=== PATIENT | female | born 1940 | race Caucasian/White ===

== ENCOUNTER 2020-07-06 22:22 | Inpatient (IN) | payer OTHER ==
--- NOTE | 2020-07-06 22:40 | PDOC ---
Attending Attestation - Resident Resident Name: Fernando Lombardi - ED Attending Attestation I have performed the following: I have examined & evaluated the patient, The case was reviewed & discussed with the resident, I agree w/resident's findings & plan - HPI HPI: 07/07/20 02:08 see resident hpi - Physicial Exam PE: 07/07/20 02:09 see resident exam - Medical Decision Making 07/07/20 02:09 79-year-old female with an episode of numbness and pain to the left lower extremity with acute discoloration described as turning white now partially resolved CTA of the lower extremity shows acute occlusion of the left popliteal artery with collateral flow in place There is a palpable thready dorsalis pedis pulse on exam Plan for heparinization and stat vascular consult with admission Discharge - Discharge Information Problems reviewed: Yes Clinical Impression/Diagnosis: Popliteal artery occlusion, left - Follow up/Referral Referrals: Andrea Camara MD [Primary Care Provider] - - Patient Discharge Instructions - Post Discharge Activity
[2020-07-06 23:19] LABS: BASO % 1.1 % (0-2.0); EOS % 1.2 % (0-4.5); HEMATOCRIT 42.3 % (32.4-45.2); HEMOGLOBIN 13.8 GM/dL (10.7-15.3); LYMPH % 19.1 % (8-40); MCHC 32.6 g/dl (32.0-36.0); MEAN CELL VOLUME 82.8 fl (80-96); MEAN PLT VOLUME 8.6 fl (7.5-11.1); MONO % 6.9 % (3.8-10.2); NEUT % 71.7 % (42.8-82.8); PLATELET COUNT 208 K/MM3 (134-434); RDW 16.3 % (11.6-15.6); WHITE BLOOD COUNT 12.4 K/mm3 (4.0-10.0)
[2020-07-06 23:26] LABS: INR 0.97 (0.83-1.09); PROTHROMBIN TIME (PATIENT) 11.5 SEC (9.7-13.0)
[2020-07-06 23:29] LABS: ACTIVATED PTT 30.6 SECONDS (25.2-36.5)
[2020-07-06 23:36] LABS: BILIRUBIN,TOTAL 0.6 mg/dL (0.2-1); BLOOD UREA NITROGEN 20.6 mg/dL (7-18); CALCIUM 9.6 mg/dL (8.5-10.1); POTASSIUM 4.5 mmol/L (3.5-5.1); TOT PROT 7.8 g/dl (6.4-8.2)
--- NOTE | 2020-07-06 23:48 | PDOC ---
History of Present Illness - General Chief Complaint: Blood Pressure Problem Stated Complaint: PAIN Time Seen by Provider: 07/06/20 22:40 - History of Present Illness Initial Comments: 07/07/20 02:11 79 F with HTN, HLD, Hypothyroidism presented to the ED with left leg paraestheasia. About 6pm, while she was gardening, she felt numbness on her right leg, below the knee, then quickly change color to white. Shortly after it happeneed, her grandson massaged her leg, and it came to normal color. She still experienced numbness since then. Denies hx of prior legs occlusion, F/C/N/V/D, chest pain, abdominal pain. PMH: as above PSH: none Med: home meds, not on anticoagulation meds. SS: denies smoking, alcohol, drug. PCP: umer CAMPBELL GENERAL/CONSTITUTIONAL: No fever or chills. No weakness. HEAD, EYES, EARS, NOSE AND THROAT: No change in vision. No ear pain or discharge. No sore throat. CARDIOVASCULAR: No chest pain or shortness of breath RESPIRATORY: No cough, wheezing, or hemoptysis. GASTROINTESTINAL: No nausea, vomiting, diarrhea or constipation. GENITOURINARY: No dysuria, frequency, or change in urination. MUSCULOSKELETAL: No joint or muscle swelling or pain. No neck or back pain. SKIN: No rash NEUROLOGIC: No headache, vertigo, loss of consciousness, +change in left leg sensation. ENDOCRINE: No increased thirst. No abnormal weight change HEMATOLOGIC/LYMPHATIC: No anemia, easy bleeding, or history of blood clots. ALLERGIC/IMMUNOLOGIC: No hives or skin allergy. PE HTN 166/90 GENERAL: Awake, alert, and fully oriented, in no acute distress HEAD: No signs of trauma, normocephalic, atraumatic EYES: PERRLA, EOMI, sclera anicteric, conjunctiva clear ENT: Auricles normal inspection, hearing grossly normal, nares patent, oropharynx clear without exudates. Moist mucosa NECK: Normal ROM, supple, no lymphadenopathy, JVD, or masses LUNGS: No distress, speaks full sentences, clear to auscultation bilaterally HEART: Regular rate and rhythm, normal S1 and S2, no murmurs, rubs or gallops, peripheral pulses normal and equal bilaterally. ABDOMEN: Soft, nontender, normoactive bowel sounds. No guarding, no rebound. No masses EXTREMITIES : Normal inspection, Normal range of motion, no edema. No clubbing or cyanosis. Can't appreciate popeliteal artery, dorsal artery, posterior tibial artery. Leg is warm, normal color. NEUROLOGICAL: Cranial nerves II through XII grossly intact. Normal speech, normal gait, no focal sensorimotor deficits SKIN: Warm, Dry, normal turgor, no rashes or lesions noted 07/07/20 02:33 Past History - Medical History Allergies/Adverse Reactions: Allergies Allergy/AdvReac Type Severity Reaction Status Date / Time No Known Allergies Allergy Verified 08/05/15 11:12 Home Medications: Ambulatory Orders Aspirin [ASA -] 81 mg PO DAILY 08/05/15 Atorvastatin Ca [Lipitor] 40 mg PO HS 08/05/15 Folic Acid 1 mg PO DAILY 08/05/15 Levothyroxine [Synthroid -] 112 mcg PO DAILY 08/05/15 Mag Carb/Aluminum Hydrox/Algin [Gaviscon Liquid] 355 ml PO Q4H PRN #0 oral.susp 08/05/15 Metoprolol Succinate [Toprol XL -] 25 mg PO BID 08/05/15 Polyethylene Glycol 3350 [Miralax 255 gm Btl] 17 gm PO DAILY #1 bottle 08/05/15 Levocetirizine Dihydrochloride 5 mg PO DAILY 07/06/20 Lisinopril [Zestril] 2.5 mg PO DAILY 07/06/20 Pantoprazole Sodium 40 mg PO DAILY 07/06/20 Vit C/E/Zn/Coppr/Lutein/Zeaxan [Preservision Areds 2 Softgel] 1 each PO DAILY 07/06/20 Cardiac Disorders: (ARRYTHMIA) COPD: No GI Disorders: Yes (S/P H.PYLORI '97,HIATAL HERNIA, GERD) HTN: Yes Hypercholesterolemia: Yes (GALLSTONES) Liver Disease: Yes (HEMANGIOMA) Thyroid Disease: Yes (HYPER) - Surgical History Appendectomy: Yes Cardiac Surgery: Yes (CARDIAC CATH 02/27) - Psycho-Social/Smoking History Smoking History: Never smoked - Substance Abuse Hx (Audit-C & DAST Scrn) How often the patient has a drink containing alcohol: Never Score: In Men: 4 or > Positive; In Women: 3 or > Positive: 0 Screen Result (Pos requires Nsg. Audit-10AR): Negative In the last yr the pt used illegal drug/Rx for NonMed reason: No Score: Yes response is considered Positive: 0 Screen Result (Positive result requires Nsg. DAST-10): Negative *Physical Exam - Vital Signs Last Vital Signs Temp Pulse Resp BP Pulse Ox 98.6 F 72 19 166/73 99 07/06/20 22:24 07/06/20 22:24 07/06/20 22:24 07/06/20 22:24 07/06/20 22:24 ED Treatment Course - LABORATORY CBC & Chemistry Diagram: 07/09/20 06:05 07/09/20 06:05 - ADDITIONAL ORDERS Additional order review: Laboratory Results 07/06/20 07/06/20 22:50 22:50 PT with INR 11.50 INR 0.97 PTT (Actin FS) 30.6 Sodium 140 Potassium 4.5 Chloride 104 Carbon Dioxide 30 Anion Gap 5 L BUN 20.6 H Creatinine 1.0 Est GFR (CKD-EPI)AfAm 61.62 Est GFR (CKD-EPI)NonAf 53.17 Random Glucose 102 Calcium 9.6 Total Bilirubin 0.6 AST 24 ALT 21 Alkaline Phosphatase 106 Total Protein 7.8 Albumin 4.0 07/06/20 22:50 RBC 5.10 MCV 82.8 MCHC 32.6 RDW 16.3 H MPV 8.6 Neutrophils % 71.7 Lymphocytes % 19.1 Monocytes % 6.9 Eosinophils % 1.2 Basophils % 1.1 Medical Decision Making - Medical Decision Making 07/07/20 02:17 CTA scan showed occlusion of the distal popiliteal artery. Consult Dr. Hardwick for urgent vascular consult. 07/07/20 02:33 [facility] to Janki MITCHELL. Discharge - Discharge Information Problems reviewed: Yes Clinical Impression/Diagnosis: Popliteal artery occlusion, left Condition: Good - Admission No - Follow up/Referral - Patient Discharge Instructions - Post Discharge Activity
[2020-07-07] MEDS ORDERED: HEPARIN NA (PORCINE) 5,000 UNITS/ML 1ML VIAL IVPUSH PRN ×2 (02:36)
--- NOTE | 2020-07-07 02:43 | HP ---
Admitting History and Physical - Primary Care Physician PCP: Oliverio Vieira - Admission Chief Complaint: Left Lower Extremity Numbness History of Present Illness: This is a 79 y/o female with a PMHx of HTN, HLD, GERD, Hypothroid. Who presents to the ED with LLE numbness x last evening. Patient reports while gardening her leg became weak and numb. Her grandson was at bedside, reports that the patient's leg was very pale looking. He reports that the color to her leg looks back to normal. The patient denies fever, chills, cough, SOB, CP, palpitations, N/V/D, constipation, dysuria. History Source: Patient Limitations to Obtaining History: No Limitations - Past Medical History Cardiovascular: Yes: HTN, Hyperlipdemia, Other (Arrhythmia) Gastrointestinal: Yes: GERD Endocrine: Yes: Hypothyroidism - Past Surgical History Past Surgical History: Yes: Appendectomy, Hysterectomy Additional Past Surgical History: cardiac cath Thyroidectomy - Smoking History Smoking history: Never smoked - Alcohol/Substance Use Hx Alcohol Use: No History of Substance Use: reports: None - Social History Usual Living Arrangement: Yes: Alone ADL: Independent History of Recent Travel: No Home Medications - Allergies Allergies/Adverse Reactions: Allergies Allergy/AdvReac Type Severity Reaction Status Date / Time No Known Allergies Allergy Verified 08/05/15 11:12 - Home Medications Home Medications: Ambulatory Orders Aspirin [ASA -] 81 mg PO DAILY 08/05/15 Atorvastatin Ca [Lipitor] 40 mg PO HS 08/05/15 Folic Acid 1 mg PO DAILY 08/05/15 Levothyroxine [Synthroid -] 112 mcg PO DAILY 08/05/15 Mag Carb/Aluminum Hydrox/Algin [Gaviscon Liquid] 355 ml PO Q4H PRN #0 oral.susp 08/05/15 Metoprolol Succinate [Toprol XL -] 25 mg PO BID 08/05/15 Polyethylene Glycol 3350 [Miralax 255 gm Btl] 17 gm PO DAILY #1 bottle 08/05/15 Levocetirizine Dihydrochloride 5 mg PO DAILY 07/06/20 Lisinopril [Zestril] 2.5 mg PO DAILY 07/06/20 Pantoprazole Sodium 40 mg PO DAILY 07/06/20 Vit C/E/Zn/Coppr/Lutein/Zeaxan [Preservision Areds 2 Softgel] 1 each PO DAILY 07/06/20 Family Medical History Family History: Unremarkable Review of Systems - Review of Systems Constitutional: reports: Malaise, Weakness HENT: reports: No Symptoms Neck: reports: No Symptoms Cardiovascular: reports: No Symptoms Respiratory: reports: No Symptoms Gastrointestinal: reports: No Symptoms Genitourinary: reports: No Symptoms Breasts: reports: No Symptoms Reported Musculoskeletal: reports: Decreased ROM Integumentary: reports: Change in Color (LLE) Neurological: reports: Numbness, Parasthesia Endocrine: reports: No Symptoms Hematology/Lymphatic: reports: No Symptoms Psychiatric: reports: No Symptoms Physical Examination Vital Signs: Vital Signs Temperature 98.6 F 07/06/20 22:24 Pulse Rate 60 07/07/20 01:27 Respiratory Rate 20 07/07/20 01:27 Blood Pressure 164/64 07/07/20 01:27 O2 Sat by Pulse Oximetry (%) 100 07/07/20 01:27 Constitutional: Yes: No Distress, Anxious, Obese Eyes: Yes: WNL, Conjunctiva Clear, EOM Intact, PERRL HENT: Yes: WNL, Atraumatic, Normocephalic Neck: Yes: WNL, Supple, Trachea Midline Cardiovascular: Yes: Regular Rate and Rhythm, S1, S2 Respiratory: Yes: WNL, Regular, CTA Bilaterally Gastrointestinal: Yes: WNL, Normal Bowel Sounds, Soft, Abdomen, Obese ...Rectal Exam: Yes: Deferred Renal/: Yes: WNL Breast(s): Yes: WNL Musculoskeletal: Yes: Muscle Pain Edema: No Peripheral Pulses: Left Radial: 2+, Right Radial: 2+, Left Doralis Pedis: 0, Right Dorsalis Pedis: 2+, Left Femoral: 0, Right Femoral: 2+ Neurological: Yes: Alert, Oriented, Cran Nerves II-XII Intact ...Motor Strength: WNL Psychiatric: Yes: WNL, Alert, Oriented Labs: CBC, BMP 07/06/20 22:50 07/06/20 22:50 Laboratory Results - last 24 hr 07/06/20 07/06/20 07/06/20 22:50 22:50 22:50 WBC 12.4 H RBC 5.10 Hgb 13.8 Hct 42.3 MCV 82.8 MCH 27.0 MCHC 32.6 RDW 16.3 H Plt Count 208 MPV 8.6 Absolute Neuts (auto) 8.9 H Neutrophils % 71.7 Lymphocytes % 19.1 Monocytes % 6.9 Eosinophils % 1.2 Basophils % 1.1 Nucleated RBC % 0 PT with INR 11.50 INR 0.97 PTT (Actin FS) 30.6 Sodium 140 Potassium 4.5 Chloride 104 Carbon Dioxide 30 Anion Gap 5 L BUN 20.6 H Creatinine 1.0 Est GFR (CKD-EPI)AfAm 61.62 Est GFR (CKD-EPI)NonAf 53.17 Random Glucose 102 Calcium 9.6 Total Bilirubin 0.6 AST 24 ALT 21 Alkaline Phosphatase 106 Total Protein 7.8 Albumin 4.0 Imaging - Results Cat Scan: Report Reviewed, Image Reviewed EKG: Image Reviewed Problem List - Problems (1) Popliteal artery occlusion, left Code(s): I70.202 - UNSP ATHSCL [place] ARTERIES OF EXTREMITIES, LEFT LEG (2) HTN (hypertension) Code(s): I10 - ESSENTIAL (PRIMARY) HYPERTENSION (3) HLD (hyperlipidemia) Code(s): E78.5 - HYPERLIPIDEMIA, UNSPECIFIED (4) GERD (gastroesophageal reflux disease) Code(s): K21.9 - GASTRO-ESOPHAGEAL REFLUX DISEASE WITHOUT ESOPHAGITIS (5) Hypothyroid Code(s): E03.9 - HYPOTHYROIDISM, UNSPECIFIED (6) Encounter for screening laboratory testing for COVID-19 virus Code(s): Z11.59 - ENCOUNTER FOR SCREENING FOR OTHER VIRAL DISEASES Assessment/Plan This is a 79 y/o female with a PMHx of HTN, HLD, GERD, Hypothroid. Admitted to [facility] for Left Popliteal Arterial Occlusion for further evaluation of their calvin gent condition. Plan: CTA Lower Extremity- occlusion left popliteal artery Vascular Consult Heparin Drip Series PTTs Neurovascular checks Elevate extremity Monitor CBC, CMP Continue home meds TSH in am Monitor vitals FEN- D50.45%NS@42ml/hr, Replete lytes prn, NPO DVT ppx- OOB, Continue Heparin Drip Dispo: Requires Inpatient Care Visit type - Medication Review Med list reviewed for High Risk Meds patients 65 and older: Yes - Emergency Visit Emergency Visit: Yes ED Registration Date: 07/07/20 Care time: The patient presented to the Emergency Department on the above date and was hospitalized for further evaluation of their emergent condition. - New Patient This patient is new to me today: Yes Date on this admission: 07/07/20 - Critical Care Critical Care patient: No
[2020-07-07] MEDS ORDERED: HEPARIN - 25,000 UNIT in SODIUM CHLORIDE 495 ML IV SCH (02:45)
[2020-07-07] MEDS ORDERED: HEPARIN INFUSION - 25,000 UNITS/500 ML INFUS.BAG IVPB ONE (02:57)
[2020-07-07] MEDS: HEPARIN INFUSION - 25,000 UNITS/500 ML INFUS.BAG IVPB SCH (03:35)
[2020-07-07] MEDS: DEXTROSE 5%-0.45% SALINE 1,000 ML IV SCH (03:56)
[2020-07-07] MEDS ORDERED: metoPROLOL SUCCINATE 25 MG TAB.SR.24H (FP) ONE (05:29)
[2020-07-07] MEDS ORDERED: METOPROLOL TARTRATE 50 MG TABLET (FP) PO ONE (05:52)
--- NOTE | 2020-07-07 07:28 | PN ---
Progress Note, Physician - Current Medication List Current Medications: Active Medications Aspirin (Asa -) 81 mg PO DAILY AL Atorvastatin Calcium (Lipitor -) 40 mg PO HS AL Heparin Sodium (Porcine) (Heparin -) 1,000 unit IVPUSH PRN PRN PRN Reason: Heparin Heparin Sodium (Porcine) (Heparin -) 5,000 unit IVPUSH PRN PRN PRN Reason: Heparin Heparin Sodium/Dextrose (Heparin Infusion -) 25,000 units in 500 mls @ 20 mls/hr IVPB TITR AL; Protocol Last Admin: 07/07/20 03:35 Dose: 1,000 unit/hr, 20 mls/hr Documented by: Dextrose/Sodium Chloride (D5-1/2ns -) 1,000 mls @ 42 mls/hr IV ASDIR AL Last Admin: 07/07/20 03:56 Dose: 42 mls/hr Documented by: Levothyroxine Sodium (Synthroid -) 112 mcg PO DAILY@0700 [facility] Non-Formulary Medication (Levocetirizine Dihydrochloride [Levocetirizine Dihydrochloride]) 5 mg PO DAILY [facility] Non-Formulary Medication (Lisinopril [Zestril]) 2.5 mg PO DAILY [facility] Non-Formulary Medication (Vit C/E/Zn/Coppr/Lutein/Zeaxan [Preservision Areds 2 Softgel]) 1 each PO DAILY [facility] Pantoprazole Sodium (Protonix -) 40 mg PO DAILY [facility] - Objective Vital Signs: Vital Signs Temperature 98.6 F 07/06/20 22:24 Pulse Rate 73 07/07/20 04:40 Respiratory Rate 20 07/07/20 04:40 Blood Pressure 187/68 H 07/07/20 04:40 O2 Sat by Pulse Oximetry (%) 100 07/07/20 04:40 Cardiovascular: Yes: Regular Rate and Rhythm Respiratory: Yes: Regular, CTA Bilaterally Gastrointestinal: Yes: Normal Bowel Sounds, Soft Extremities: Yes: Cool. No: Cyanosis, Erythema Edema: No Labs: CBC, BMP 07/06/20 22:50 07/06/20 22:50 INR, PTT INR 0.97 (0.83-1.09) 07/06/20 22:50 Problem List - Problems (1) Popliteal artery occlusion, left Assessment/Plan: CTA Lower Extremity- occlusion left popliteal artery Vascular Consult Heparin Drip Series PTTs Neurovascular checks Elevate extremity Monitor CBC, CMP Code(s): I70.202 - UNSP ATHSCL [place] ARTERIES OF EXTREMITIES, LEFT LEG (2) HLD (hyperlipidemia) Assessment/Plan: on lipitor Code(s): E78.5 - HYPERLIPIDEMIA, UNSPECIFIED (3) HTN (hypertension) Assessment/Plan: Vital Signs Period Temp Pulse Resp BP Sys/Frank Pulse Ox Last 24 Hr 98.2 F-98.6 F 60-73 19-20 164-187/64-83 98-100 Code(s): I10 - ESSENTIAL (PRIMARY) HYPERTENSION
[2020-07-07 07:40] VITALS: BMI 36.1
[2020-07-07] MEDS ORDERED: PNEUMOC 13-VAL CONJ-DIP CRM/PF 0.5 ML DISP.SYRIN IM ONE (07:40)
[2020-07-07] MEDS ORDERED: PATIENT'S OWN MEDICATION (NON-FORMULARY) (Vit C/E/Zn/Coppr/Lutein/Zeaxan [Preservision Are PO SCH (10:00)
[2020-07-07] MEDS ORDERED: LISINOPRIL 5 MG TABLET (FP) PO SCH (10:00)
--- NOTE | 2020-07-07 10:57 | CON.CARD ---
Consult Consult Specialty:: Cardiology Referred by:: Jax Reason for Consultation:: preop eval - History of Present Illness Chief Complaint: leg numbness History of Present Illness: 79 y/o female with a PMHx of HTN, HLD, GERD, Hypothroid. Who presents to the ED with LLE numbness x last evening, decreased pulses. Now awaiting angiogram. Denies cp, sob, orthopnea, pnd or edema. Exercise tolerance at baseline is good. Denies cardiac history. CTA showed acute left popliteal occlusion. - History Source History Provided By: Patient, Medical Record - Past Medical History Cardio/Vascular: Yes: HTN, Hyperlipdemia, Other (Arrhythmia) Gastrointestinal: Yes: GERD Endocrine: Yes: Hypothyroidism - Past Surgical History Past Surgical History: Yes: Appendectomy, Hysterectomy - Alcohol/Substance Use Hx Alcohol Use: No History of Substance Use: reports: None - Smoking History Smoking history: Never smoked - Social History ADL: Independent History of Recent Travel: No Home Medications - Allergies Allergies/Adverse Reactions: Allergies Allergy/AdvReac Type Severity Reaction Status Date / Time No Known Allergies Allergy Verified 08/05/15 11:12 - Home Medications Home Medications: Ambulatory Orders Aspirin [ASA -] 81 mg PO DAILY 08/05/15 Atorvastatin Ca [Lipitor] 40 mg PO HS 08/05/15 Folic Acid 1 mg PO DAILY 08/05/15 Levothyroxine [Synthroid -] 112 mcg PO DAILY 08/05/15 Mag Carb/Aluminum Hydrox/Algin [Gaviscon Liquid] 355 ml PO Q4H PRN #0 oral.susp 08/05/15 Metoprolol Succinate [Toprol XL -] 25 mg PO BID 08/05/15 Polyethylene Glycol 3350 [Miralax 255 gm Btl] 17 gm PO DAILY #1 bottle 08/05/15 Levocetirizine Dihydrochloride 5 mg PO DAILY 07/06/20 Lisinopril [Zestril] 2.5 mg PO DAILY 07/06/20 Pantoprazole Sodium 40 mg PO DAILY 07/06/20 Vit C/E/Zn/Coppr/Lutein/Zeaxan [Preservision Areds 2 Softgel] 1 each PO DAILY 07/06/20 Vital Signs: Vital Signs Temperature 98.2 F 07/07/20 05:11 Pulse Rate 70 07/07/20 05:11 Respiratory Rate 20 07/07/20 05:11 Blood Pressure 169/83 07/07/20 05:11 O2 Sat by Pulse Oximetry (%) 98 07/07/20 05:11 Constitutional: Yes: No Distress, Calm Eyes: Yes: Conjunctiva Clear, EOM Intact HENT: Yes: Normocephalic Neck: Yes: Trachea Midline Respiratory: Yes: CTA Bilaterally Gastrointestinal: Yes: Normal Bowel Sounds, Soft Cardiovascular: Yes: Regular Rate and Rhythm JVD: No Carotid Bruit: No PMI: Non-Displaced Heart Sounds: Yes: S1, S2 Musculoskeletal: Yes: WNL Extremities: Yes: Cold (left foot) Edema: No Peripheral Pulses WNL: No Peripheral Pulses: 0 Left Popliteal, 0 Left Doralis Pedis - Other Data Labs, Other Data: CBC, BMP 07/06/20 22:50 07/06/20 22:50 INR, PTT INR 0.97 (0.83-1.09) 07/06/20 22:50 Imaging - Results Chest X-ray: Report Reviewed (pankaj) EKG: Report Reviewed (nsr) Assessment/Plan 79 y/o female with a PMHx of HTN, HLD, GERD, Hypothroid. Who presents to the ED with LLE numbness x last evening, decreased pulses. Now awaiting angiogram. Denies cp, sob, orthopnea, pnd or edema. Exercise tolerance at baseline is good. Denies cardiac history. CTA showed acute left popliteal occlusion. IMP: -there are no cardiac contraindications to angiogram or intervention. She is at low risk for percutaneous procedures and intermediate risk for open procedures. no further preop cardiac testing is needed. -hold lisinopril for now and resume postop, continue home metoprolol. continue IV heparin. -will follow with you.
[2020-07-07] MEDS: ASPIRIN 81 MG CHEWABLE TABLETS PO SCH (11:20)
[2020-07-07] MEDS: LORATADINE 10 MG TABLET PO SCH (11:20)
[2020-07-07] MEDS: PANTOPRAZOLE 40 MG TABLET PO SCH (11:20)
[2020-07-07] MEDS: LEVOTHYROXINE NA 112 MCG TABLET (FP) PO SCH (12:15)
--- NOTE | 2020-07-07 14:43 | CONSULT ---
- Consultation REQUESTING PROVIDER: CONSULT REQUEST: We have been asked to surgically evaluate this patient for LLE popliteal artery occlusion PCP:Andrea Camara HISTORY OF PRESENT ILLNESS: 79yo F consulted to vascular to evaluate LLE popliteal artery occlusion. Pt states that she noticed she was having pain and numbness in her Lt calf/foot x 3 days. Pt states that the pain and numbness improved once she got to the hospital. Pt denies h/o vascular disease or smoking. Pt denies recent trauma to her leg. Denies fever, chills, n/v. cp or SOB. PMHx: HLD, HTN, GERD, hypothyroidism Home Medications Medication Instructions Recorded Aspirin [ASA -] 81 mg PO DAILY 08/05/15 Atorvastatin Ca [Lipitor] 40 mg PO HS 08/05/15 Folic Acid 1 mg PO DAILY 08/05/15 Levothyroxine [Synthroid -] 112 mcg PO DAILY 08/05/15 Mag Carb/Aluminum Hydrox/Algin 355 ml PO Q4H PRN #0 oral.susp 08/05/15 [Gaviscon Liquid] Metoprolol Succinate [Toprol XL -] 25 mg PO BID 08/05/15 Polyethylene Glycol 3350 [Miralax 17 gm PO DAILY #1 bottle 08/05/15 255 gm Btl] Levocetirizine Dihydrochloride 5 mg PO DAILY 07/06/20 Lisinopril [Zestril] 2.5 mg PO DAILY 07/06/20 Pantoprazole Sodium 40 mg PO DAILY 07/06/20 Vit C/E/Zn/Coppr/Lutein/Zeaxan 1 each PO DAILY 07/06/20 [Preservision Areds 2 Softgel] Allergies Allergy/AdvReac Type Severity Reaction Status Date / Time No Known Allergies Allergy Verified 08/05/15 11:12 PHYSICAL EXAM: GENERAL: Awake, alert, and fully oriented, in no acute distress. HEAD: Normal with no signs of trauma. EYES: PERRL, sclera anicteric, conjunctiva clear. NECK: Normal ROM, supple without lymphadenopathy, JVD, or masses. LUNGS:breathing comfortably No accessory muscle use. HEART: Regular rate and rhythm. ABDOMEN: Soft, nontender, not distended, normoactive bowel sounds, no guarding, no rebound, no masses. No organomegaly. MUSCULOSKELETAL: Normal ROM at all joints. No bony deformities or tenderness. No CVA tenderness. UPPER EXTREMITIES: warm, well-perfused. No cyanosis. No peripheral edema. LOWER EXTREMITIES: RLE 2+ pulses, warm, well-perfused. No calf tenderness. No peripheral edema. LLE: dopplarable PT pulse, slightly cooler then right, mild numbness, no edema. NEUROLOGICAL: Normal speech, gait not observed. PSYCH: Cooperative. Good eye contact. Appropriate mood and affect. SKIN: Warm, dry, normal turgor, no rashes or lesions noted. Vital Signs Temperature 98.2 F 07/07/20 05:11 Pulse Rate 70 07/07/20 05:11 Respiratory Rate 20 07/07/20 05:11 Blood Pressure 169/83 07/07/20 05:11 O2 Sat by Pulse Oximetry (%) 98 07/07/20 05:11 Lab Results WBC 12.4 K/mm3 (4.0-10.0) H 07/06/20 22:50 RBC 5.10 M/mm3 (3.60-5.2) 07/06/20 22:50 Hgb 13.8 GM/dL (10.7-15.3) 07/06/20 22:50 Hct 42.3 % (32.4-45.2) 07/06/20 22:50 MCV 82.8 fl (80-96) 07/06/20 22:50 MCHC 32.6 g/dl (32.0-36.0) 07/06/20 22:50 RDW 16.3 % (11.6-15.6) H 07/06/20 22:50 Plt Count 208 K/MM3 (134-434) 07/06/20 22:50 INR 0.97 (0.83-1.09) 07/06/20 22:50 Sodium 140 mmol/L (136-145) 07/06/20 22:50 Potassium 4.5 mmol/L (3.5-5.1) 07/06/20 22:50 Chloride 104 mmol/L (98-107) 07/06/20 22:50 Carbon Dioxide 30 mmol/L (21-32) 07/06/20 22:50 Anion Gap 5 MMOL/L (8-16) L 07/06/20 22:50 BUN 20.6 mg/dL (7-18) H 07/06/20 22:50 Creatinine 1.0 mg/dL (0.55-1.3) 07/06/20 22:50 Random Glucose 102 mg/dL (74-106) 07/06/20 22:50 Calcium 9.6 mg/dL (8.5-10.1) 07/06/20 22:50 CTA showed acute left popliteal occlusion. Problem List - Problems (1) Popliteal artery occlusion, left Assessment/Plan: Plan -will plan to do an angiogram tomorrow for popliteal occlusion -NPO after midnight -heparin drip Discussed with Dr. Hardwick who agrees with plan Code(s): I70.202 - UNSP ATHSCL [place] ARTERIES OF EXTREMITIES, LEFT LEG
--- NOTE | 2020-07-07 14:59 | EKG ---
Test Reason : Blood Pressure : / mmHG Vent. Rate : 061 BPM Atrial Rate : 061 BPM P-R Int : 158 ms QRS Dur : 092 ms QT Int : 426 ms P-R-T Axes : 045 036 067 degrees QTc Int : 428 ms NORMAL SINUS RHYTHM NONSPECIFIC ST ABNORMALITY ABNORMAL ECG WHEN COMPARED WITH ECG OF 03-MAY-2008 07:10, NO SIGNIFICANT CHANGE WAS FOUND Confirmed by YOUNG BELTRAN MD ([id number]) on 07/07/2020 2:59:07 PM Referred By: Confirmed By:YOUNG BELTRAN MD
--- NOTE | 2020-07-07 18:27 | PN ---
Progress Note (short form) - Note Progress Note: Vascular Surgery Pt seen and examined. Complains of one day history of pain in left limb. She felt it outside when she was cutting her mauricio. She then came in to the hospital after her grand son looked at her leg. Pt is not a diabetic and is not a smoker. CTA done shows left popliteal artery occlusion. Could be clot -- probably embolus. Right leg is normal -- good DP pulse. Left leg -- motor and sensory is intact. Foot is warm. Pt feels much better on IV heparin. Will do angiogram , possible open thrombectomy for clot tomorrow morning. NPO past midnite. Covid 19 swab pending. Eladio Hardwick DO
[2020-07-07] MEDS ORDERED: ATORVASTATIN CA 40 MG TABLET (FP) PO SCH (22:00)
[2020-07-08] MEDS: DEXTROSE 5%-0.45% SALINE 1,000 ML IV SCH ×2 (02:47→14:20)
[2020-07-08] MEDS: LEVOTHYROXINE NA 112 MCG TABLET (FP) PO SCH (05:59)
[2020-07-08 08:28] LABS: ALBUMIN 3.5 g/dl (3.4-5.0); BILIRUBIN,TOTAL 0.6 mg/dL (0.2-1); CALCIUM 9.3 mg/dL (8.5-10.1); CREATININE 0.8 mg/dL (0.55-1.3); POTASSIUM 3.8 mmol/L (3.5-5.1)
--- NOTE | 2020-07-08 09:13 | PN ---
Progress Note, Physician Chief Complaint: LLE popliteal artery occlusion History of Present Illness: NAD for open thrombectomy today - Current Medication List Current Medications: Active Medications Aspirin (Asa -) 81 mg PO DAILY [facility] Last Admin: 07/07/20 11:20 Dose: 81 mg Documented by: Atorvastatin Calcium (Lipitor -) 40 mg PO HS [facility] Last Admin: 07/07/20 22:08 Dose: 40 mg Documented by: Dextrose/Sodium Chloride (D5-1/2ns -) 1,000 mls @ 42 mls/hr IV ASDIR [facility] Last Admin: 07/08/20 02:47 Dose: 42 mls/hr Documented by: Levothyroxine Sodium (Synthroid -) 112 mcg PO DAILY@0700 [facility] Last Admin: 07/08/20 05:59 Dose: Not Given Documented by: Loratadine (Claritin -) 10 mg PO DAILY [facility] Last Admin: 07/07/20 11:20 Dose: 10 mg Documented by: Pantoprazole Sodium (Protonix -) 40 mg PO DAILY [facility] Last Admin: 07/07/20 11:20 Dose: 40 mg Documented by: Pneumococcal 13-Valent Conj Vacc (Prevnar 13 Syringe -) 0.5 ml IM .ONCE ONE Stop: 07/07/20 07:41 - Objective Vital Signs: Vital Signs Temperature 98.2 F 07/08/20 06:09 Pulse Rate 64 07/08/20 06:09 Respiratory Rate 20 07/08/20 06:09 Blood Pressure 144/94 07/08/20 06:09 O2 Sat by Pulse Oximetry (%) 96 07/08/20 06:09 Constitutional: Yes: Well Nourished, No Distress, Calm, Obese Cardiovascular: Yes: Regular Rate and Rhythm Respiratory: Yes: Regular, CTA Bilaterally Gastrointestinal: Yes: Normal Bowel Sounds, Soft Genitourinary: Yes: WNL Musculoskeletal: Yes: Muscle Weakness Extremities: Yes: Cool (LLE) Edema: No Peripheral Pulses WNL: Yes Neurological: Yes: Alert, Oriented Psychiatric: Yes: Alert, Oriented Labs: CBC, BMP 07/06/20 22:50 07/08/20 07:10 INR, PTT INR 0.97 (0.83-1.09) 07/06/20 22:50 Problem List - Problems (1) Popliteal artery occlusion, left Assessment/Plan: -Vascular surgery consult apreciated -To OR today for open thrombectomy Problems reviewed: Yes Code(s): I70.202 - UNSP ATHSCL [place] ARTERIES OF EXTREMITIES, LEFT LEG (2) HLD (hyperlipidemia) Assessment/Plan: -Continue statin Problems reviewed: Yes Code(s): E78.5 - HYPERLIPIDEMIA, UNSPECIFIED (3) HTN (hypertension) Assessment/Plan: -Restart BB + ACEI home dose -monitor trend Problems reviewed: Yes Code(s): I10 - ESSENTIAL (PRIMARY) HYPERTENSION Assessment/Plan See problem list
[2020-07-08] MEDS ORDERED: HEPARIN NA (PORCINE) 5,000 UNITS/ML 1ML VIAL ONE ×2 (09:35→09:37)
[2020-07-08] MEDS ORDERED: LIDOCAINE HCL 1%, 10 MG/ML (20ML VIAL) ONE ×2 (09:35→09:37)
[2020-07-08] MEDS: HEPARIN INFUSION - 25,000 UNITS/500 ML INFUS.BAG IVPB SCH (09:40)
[2020-07-08] MEDS ORDERED: MIDAZOLAM HCL 2 MG/2 ML SINGLE DOSE VIAL ONE ×3 (10:30→12:06)
--- NOTE | 2020-07-08 10:35 | PN ---
Progress Note, Physician Chief Complaint: no complaints History of Present Illness: 79 y/o female with a PMHx of HTN, HLD, GERD, Hypothroid. Who presents to the ED with LLE numbness x last evening, decreased pulses. Now awaiting angiogram. Denies cp, sob, orthopnea, pnd or edema. Exercise tolerance at baseline is good. Denies cardiac history. CTA showed acute left popliteal occlusion. - Current Medication List Current Medications: Active Medications Aspirin (Asa -) 81 mg PO DAILY [facility] Last Admin: 07/07/20 11:20 Dose: 81 mg Documented by: Atorvastatin Calcium (Lipitor -) 40 mg PO HS [facility] Last Admin: 07/07/20 22:08 Dose: 40 mg Documented by: Dextrose/Sodium Chloride (D5-1/2ns -) 1,000 mls @ 42 mls/hr IV ASDIR [facility] Last Admin: 07/08/20 02:47 Dose: 42 mls/hr Documented by: Levothyroxine Sodium (Synthroid -) 112 mcg PO DAILY@0700 [facility] Last Admin: 07/08/20 05:59 Dose: Not Given Documented by: Loratadine (Claritin -) 10 mg PO DAILY [facility] Last Admin: 07/07/20 11:20 Dose: 10 mg Documented by: Pantoprazole Sodium (Protonix -) 40 mg PO DAILY [facility] Last Admin: 07/07/20 11:20 Dose: 40 mg Documented by: Pneumococcal 13-Valent Conj Vacc (Prevnar 13 Syringe -) 0.5 ml IM .ONCE ONE Stop: 07/07/20 07:41 - Objective Vital Signs: Vital Signs Temperature 98.2 F 07/08/20 06:09 Pulse Rate 64 07/08/20 06:09 Respiratory Rate 20 07/08/20 06:09 Blood Pressure 144/94 07/08/20 06:09 O2 Sat by Pulse Oximetry (%) 96 07/08/20 06:09 Constitutional: Yes: No Distress, Calm Eyes: Yes: EOM Intact HENT: Yes: Atraumatic, Normocephalic Neck: Yes: Trachea Midline Cardiovascular: Yes: Regular Rate and Rhythm Respiratory: Yes: CTA Bilaterally Gastrointestinal: Yes: Normal Bowel Sounds, Soft Musculoskeletal: Yes: WNL Extremities: Yes: WNL Labs: CBC, BMP 07/06/20 22:50 07/08/20 07:10 INR, PTT INR 0.97 (0.83-1.09) 07/06/20 22:50 Assessment/Plan 79 y/o female with a PMHx of HTN, HLD, GERD, Hypothroid. Who presents to the ED with LLE numbness x last evening, decreased pulses. Now awaiting angiogram. Denies cp, sob, orthopnea, pnd or edema. Exercise tolerance at baseline is good. Denies cardiac history. CTA showed acute left popliteal occlusion. IMP: -there are no cardiac contraindications to angiogram or intervention. She is at low risk for percutaneous procedures and intermediate risk for open procedures. no further preop cardiac testing is needed. -hold lisinopril for now and resume postop, continue home metoprolol. continue IV heparin. -will follow with you.
[2020-07-08] MEDS: ASPIRIN 81 MG CHEWABLE TABLETS PO SCH (10:42)
[2020-07-08] MEDS: LORATADINE 10 MG TABLET PO SCH (10:42)
[2020-07-08] MEDS: PANTOPRAZOLE 40 MG TABLET PO SCH (10:42)
[2020-07-08] MEDS ORDERED: ceFAZolin SODIUM 1 GM VIAL IVPB ONE ×2 (11:10)
[2020-07-08] MEDS ORDERED: LIDOCAINE HCL 1%, 10 MG/ML (20ML VIAL) INF ONE ×2 (11:22)
[2020-07-08] MEDS ORDERED: KETOROLAC TROMETHAMINE 30 MG/1 ML VIAL ONE ×2 (12:05→12:07)
[2020-07-08] MEDS ORDERED: ceFAZolin SODIUM 1 GM VIAL ONE ×2 (12:06→12:07)
[2020-07-08] MEDS ORDERED: PROPOFOL 20 ML ONE (12:17)
[2020-07-08] MEDS ORDERED: ACETAMINOPHEN INJECTION 100 ML IVPB ONE (12:19)
[2020-07-08] MEDS ORDERED: POVIDONE-IODINE OINTMENT 10% - 28.4 GM TUBE ONE (12:48)
[2020-07-08] MEDS ORDERED: LISINOPRIL 5 MG TABLET (FP) PO SCH (13:00)
[2020-07-08] MEDS ORDERED: metoPROLOL SUCCINATE 25 MG TAB.SR.24H (FP) PO SCH (13:00)
--- NOTE | 2020-07-08 13:03 | OP ---
Operative Note - Note: Operative Date: 07/08/20 Pre-Operative Diagnosis: Left lower extremity embolus Operation: Aortogram, LLE angiogram, open embolectomy left lower extremity. Findings: embolus sent to path from popliteal artery Post-Operative Diagnosis: Same as Pre-op Surgeon: Eladio Hadrwick Anesthesia: MAC Specimens Removed: clot in popliteal artery Estimated Blood Loss (mls): 50 Operative Report Dictated: Yes
[2020-07-08] MEDS ORDERED: PROMETHAZINE HCL 25 MG/1 ML VIAL IVPUSH PRN (13:47)
[2020-07-08] MEDS ORDERED: ONDANSETRON 4 MG/2 ML VIAL IVPUSH PRN (13:47)
[2020-07-08] MEDS ORDERED: oxyCODONE HCL 5 MG TABLET PO PRN (13:47)
[2020-07-08] MEDS: APIXABAN 5 MG TABLET PO SCH ×2 (14:05→21:58)
--- NOTE | 2020-07-08 18:00 | PN ---
Progress Note (short form) - Note Progress Note: Vascular Surgery Pt seen and examined. Left foot warm. S/P embolectomy from popliteal and tibial arteries. Pt started on eliquis. Can be DC home saturday. Cardiology on case. Pt has dopplerable dp and pt pulses. Motor and sensory intact. Eladio Hardwick DO
[2020-07-08] MEDS: metoPROLOL SUCCINATE 25 MG TAB.SR.24H (FP) PO SCH (21:58)
[2020-07-08] MEDS: ATORVASTATIN CA 40 MG TABLET (FP) PO SCH (21:58)
[2020-07-09] MEDS: LEVOTHYROXINE NA 112 MCG TABLET (FP) PO SCH (06:06)
[2020-07-09 07:24] LABS: BASO % 0.5 % (0-2.0); EOS % 2.9 % (0-4.5); HEMATOCRIT 33.9 % (32.4-45.2); HEMOGLOBIN 10.9 GM/dL (10.7-15.3); MCH 26.8 pg (25.7-33.7); MCHC 32.1 g/dl (32.0-36.0); MEAN CELL VOLUME 83.5 fl (80-96); MEAN PLT VOLUME 8.8 fl (7.5-11.1); MONO % 8.1 % (3.8-10.2); NEUT % 69.5 % (42.8-82.8); PLATELET COUNT 167 K/MM3 (134-434); RBC 4.05 M/mm3 (3.60-5.2); RDW 15.9 % (11.6-15.6)
[2020-07-09 07:54] LABS: BILIRUBIN,TOTAL 0.6 mg/dL (0.2-1); BLOOD UREA NITROGEN 11.5 mg/dL (7-18); CALCIUM 8.6 mg/dL (8.5-10.1); CREATININE 0.7 mg/dL (0.55-1.3); POTASSIUM 3.9 mmol/L (3.5-5.1); TOT PROT 5.8 g/dl (6.4-8.2)
--- NOTE | 2020-07-09 09:53 | PN ---
Progress Note (short form) - Note Progress Note: Post op day#1.S/P Open thrombectomy with angiogram under MAC uneventful.Patient stable.No any anesthesia related problem.Patient DC from the anesthesia care.
[2020-07-09] MEDS ORDERED: FOLIC ACID 1 MG TABLET (FP) PO SCH (10:00)
[2020-07-09] MEDS ORDERED: POLYETHYLENE GLYCOL 3350 255 GM BTL PO SCH (10:00)
[2020-07-09] MEDS: POLYETHYLENE GLYCOL 3350 255 GM BTL PO SCH (10:06)
[2020-07-09] MEDS: FOLIC ACID 1 MG TABLET (FP) PO SCH (10:07)
[2020-07-09] MEDS: LISINOPRIL 5 MG TABLET (FP) PO SCH (10:07)
[2020-07-09] MEDS: PANTOPRAZOLE 40 MG TABLET PO SCH (10:07)
[2020-07-09] MEDS: APIXABAN 5 MG TABLET PO SCH ×2 (10:07→21:46)
[2020-07-09] MEDS: ASPIRIN 81 MG CHEWABLE TABLETS PO SCH (10:07)
[2020-07-09] MEDS: metoPROLOL SUCCINATE 25 MG TAB.SR.24H (FP) PO SCH ×2 (10:07→21:46)
[2020-07-09] MEDS: LORATADINE 10 MG TABLET PO SCH (10:07)
--- NOTE | 2020-07-09 12:58 | PN ---
Progress Note (short form) - Note Progress Note: Vascular Surgery Pt seen and examined. Doing well. No pain in left leg. Leg is warm, pink. Dopplerable pulses DP and PT Motor and sensory are intact. Cont eliquis and DC home on eliquis please. Please have pt follow up in office in one week for staple removal. Groin dressing can be removed reema, and leave open to air. Eladio Hardwick DO
--- NOTE | 2020-07-09 13:51 | PN ---
Progress Note, Physician History of Present Illness: seen and examined today in nad. no overnight events. no new complaints. - Current Medication List Current Medications: Active Medications Apixaban (Eliquis -) 5 mg PO BID [facility] Last Admin: 07/09/20 10:07 Dose: 5 mg Documented by: Aspirin (Asa -) 81 mg PO DAILY [facility] Last Admin: 07/09/20 10:07 Dose: 81 mg Documented by: Atorvastatin Calcium (Lipitor -) 40 mg PO HS [facility] Last Admin: 07/08/20 21:58 Dose: 40 mg Documented by: Folic Acid (Folic Acid -) 1 mg PO DAILY [facility] Last Admin: 07/09/20 10:07 Dose: 1 mg Documented by: Dextrose/Sodium Chloride (D5-1/2ns -) 1,000 mls @ 42 mls/hr IV ASDIR [facility] Last Admin: 07/08/20 14:20 Dose: 0 mls Documented by: Levothyroxine Sodium (Synthroid -) 112 mcg PO DAILY@0700 [facility] Last Admin: 07/09/20 06:06 Dose: 112 mcg Documented by: Lisinopril (Prinivil) 2.5 mg PO DAILY [facility] Last Admin: 07/09/20 10:07 Dose: 2.5 mg Documented by: Loratadine (Claritin -) 10 mg PO DAILY [facility] Last Admin: 07/09/20 10:07 Dose: 10 mg Documented by: Metoprolol Succinate (Toprol Xl -) 25 mg PO BID [facility] Last Admin: 07/09/20 10:07 Dose: 25 mg Documented by: Ondansetron HCl (Zofran Injection) 4 mg IVPUSH Q6H PRN PRN Reason: NAUSEA AND/OR VOMITING Pantoprazole Sodium (Protonix -) 40 mg PO DAILY [facility] Last Admin: 07/09/20 10:07 Dose: 40 mg Documented by: Polyethylene Glycol (Miralax (For Bowel Prep) -) 17 gm PO DAILY [facility] Last Admin: 07/09/20 10:06 Dose: 17 grams Documented by: - Objective Vital Signs: Vital Signs Temperature 99.0 F 07/09/20 10:00 Pulse Rate 80 07/09/20 10:00 Respiratory Rate 18 07/09/20 10:00 Blood Pressure 153/59 L 07/09/20 10:00 O2 Sat by Pulse Oximetry (%) 97 07/09/20 10:00 Constitutional: Yes: No Distress, Calm Eyes: Yes: Conjunctiva Clear, EOM Intact HENT: Yes: Atraumatic, Normocephalic Neck: Yes: Supple, Trachea Midline Cardiovascular: Yes: Regular Rate and Rhythm, S1, S2. No: Bradycardia, Tachycardia, Pulse Irregular, Bruit, JVD, Gallop, Murmur, Rub, S3, S4, Varicosities Respiratory: Yes: Regular, CTA Bilaterally. No: Rales, Rhonchi, SOB, Wheezes Gastrointestinal: Yes: Normal Bowel Sounds, Soft. No: Distention, Tenderness Edema: No Peripheral Pulses WNL: Yes Neurological: Yes: Alert, Oriented Psychiatric: Yes: Alert, Oriented Labs: CBC, BMP 07/09/20 06:05 07/09/20 06:05 INR, PTT INR 0.97 (0.83-1.09) 07/06/20 22:50 - ....Imaging Chest X-ray: Report Reviewed, Image Reviewed EKG: Report Reviewed, Image Reviewed Other: Report Reviewed, Image Reviewed (tele-no sig arrhythmias) Assessment/Plan 79 y/o female with a PMHx of HTN, HLD, GERD, Hypothroid. Who presents to the ED with LLE numbness x last evening, decreased pulses. Now awaiting angiogram. Denies cp, sob, orthopnea, pnd or edema. Exercise tolerance at baseline is good. Denies cardiac history. CTA showed acute left popliteal occlusion. IMP: -tolerated procedure well from a cardiac standpoint with no complications. -cont lisinopril, metoprolol -cont eliquis -no other inpatient cardiac work up is needed as this time. WIll see as needed. please call with questions.
--- NOTE | 2020-07-09 14:25 | PN ---
Progress Note, Physician Chief Complaint: AWAKE ALERT FEELS GOOD DENIES FEVER OR CHILLS - Current Medication List Current Medications: Active Medications Apixaban (Eliquis -) 5 mg PO BID [facility] Last Admin: 07/09/20 10:07 Dose: 5 mg Documented by: Aspirin (Asa -) 81 mg PO DAILY [facility] Last Admin: 07/09/20 10:07 Dose: 81 mg Documented by: Atorvastatin Calcium (Lipitor -) 40 mg PO HS [facility] Last Admin: 07/08/20 21:58 Dose: 40 mg Documented by: Folic Acid (Folic Acid -) 1 mg PO DAILY [facility] Last Admin: 07/09/20 10:07 Dose: 1 mg Documented by: Dextrose/Sodium Chloride (D5-1/2ns -) 1,000 mls @ 42 mls/hr IV ASDIR [facility] Last Admin: 07/08/20 14:20 Dose: 0 mls Documented by: Levothyroxine Sodium (Synthroid -) 112 mcg PO DAILY@0700 [facility] Last Admin: 07/09/20 06:06 Dose: 112 mcg Documented by: Lisinopril (Prinivil) 2.5 mg PO DAILY [facility] Last Admin: 07/09/20 10:07 Dose: 2.5 mg Documented by: Loratadine (Claritin -) 10 mg PO DAILY [facility] Last Admin: 07/09/20 10:07 Dose: 10 mg Documented by: Metoprolol Succinate (Toprol Xl -) 25 mg PO BID [facility] Last Admin: 07/09/20 10:07 Dose: 25 mg Documented by: Ondansetron HCl (Zofran Injection) 4 mg IVPUSH Q6H PRN PRN Reason: NAUSEA AND/OR VOMITING Pantoprazole Sodium (Protonix -) 40 mg PO DAILY [facility] Last Admin: 07/09/20 10:07 Dose: 40 mg Documented by: Polyethylene Glycol (Miralax (For Bowel Prep) -) 17 gm PO DAILY [facility] Last Admin: 07/09/20 10:06 Dose: 17 grams Documented by: - Objective Vital Signs: Vital Signs Temperature 98.6 F 07/09/20 14:15 Pulse Rate 65 07/09/20 14:15 Respiratory Rate 18 07/09/20 14:15 Blood Pressure 147/64 07/09/20 14:15 O2 Sat by Pulse Oximetry (%) 98 07/09/20 14:15 Constitutional: Yes: No Distress Cardiovascular: Yes: Regular Rate and Rhythm Respiratory: Yes: WNL Gastrointestinal: Yes: Normal Bowel Sounds, Soft Genitourinary: Yes: WNL Musculoskeletal: Yes: WNL Extremities: Yes: WNL Edema: No Peripheral Pulses WNL: Yes Integumentary: Yes: WNL Wound/Incision: Yes: Clean/Dry Neurological: Yes: WNL ...Motor Strength: WNL Psychiatric: Yes: WNL Labs: CBC, BMP 07/09/20 06:05 07/09/20 06:05 INR, PTT INR 0.97 (0.83-1.09) 07/06/20 22:50 Problem List - Problems (1) Encounter for screening laboratory testing for COVID-19 virus Code(s): Z11.59 - ENCOUNTER FOR SCREENING FOR OTHER VIRAL DISEASES (2) GERD (gastroesophageal reflux disease) Code(s): K21.9 - GASTRO-ESOPHAGEAL REFLUX DISEASE WITHOUT ESOPHAGITIS (3) HLD (hyperlipidemia) Code(s): E78.5 - HYPERLIPIDEMIA, UNSPECIFIED (4) HTN (hypertension) Code(s): I10 - ESSENTIAL (PRIMARY) HYPERTENSION (5) Popliteal artery occlusion, left Code(s): I70.202 - UNSP ATHSCL [place] ARTERIES OF EXTREMITIES, LEFT LEG Assessment/Plan POD #1 LEFT LOWER EXTREMITY OBSTRUCTION RELIEVED ABLE TO WALK DENIES PAIN DC PLANNING TOMORROW SURGERY F/U
[2020-07-09] MEDS: ATORVASTATIN CA 40 MG TABLET (FP) PO SCH (21:46)
[2020-07-09] MEDS: DEXTROSE 5%-0.45% SALINE 1,000 ML IV SCH (21:46)
[2020-07-10] MEDS: LEVOTHYROXINE NA 112 MCG TABLET (FP) PO SCH (06:25)
[2020-07-10 08:09] LABS: HEMATOCRIT 35.3 % (32.4-45.2); HEMOGLOBIN 11.9 GM/dL (10.7-15.3); MCH 27.9 pg (25.7-33.7); MCHC 33.8 g/dl (32.0-36.0); MEAN CELL VOLUME 82.8 fl (80-96); MEAN PLT VOLUME 9.1 fl (7.5-11.1); PLATELET COUNT 175 K/MM3 (134-434); RBC 4.26 M/mm3 (3.60-5.2); RDW 16.2 % (11.6-15.6)
[2020-07-10] MEDS ORDERED: PT OWN MED DRAWER 7, Y5N ONE (08:55)
--- NOTE | 2020-07-10 09:47 | DS ---
Physical Examination Vital Signs: Vital Signs Temperature 99.3 F 07/10/20 06:00 Pulse Rate 69 07/10/20 06:00 Respiratory Rate 20 07/10/20 06:00 Blood Pressure 112/67 07/10/20 06:00 O2 Sat by Pulse Oximetry (%) 94 L 07/10/20 06:00 Findings/Remarks: LEFT LEG ARTERIAL OBSTRUCTION S/P ANGIOPLASTY Constitutional: Yes: No Distress Eyes: Yes: WNL HENT: Yes: WNL Neck: Yes: WNL Cardiovascular: Yes: WNL Respiratory: Yes: WNL Gastrointestinal: Yes: WNL Renal/: Yes: WNL Musculoskeletal: Yes: WNL Extremities: Yes: WNL Peripheral Pulses WNL: Yes Integumentary: Yes: WNL Wound/Incision: Yes: Anuj Intact, Dressing Removed Neurological: Yes: WNL ...Motor Strength: LLE Psychiatric: Yes: WNL Labs: CBC, BMP 07/10/20 07:30 07/09/20 06:05 Discharge Summary Problems reviewed: Yes Reason For Visit: OCCLUSION OF LEFT POPLITEAL ARTERY Current Active Problems Encounter for screening laboratory testing for COVID-19 virus (Acute) GERD (gastroesophageal reflux disease) (Acute) HLD (hyperlipidemia) (Acute) HTN (hypertension) (Acute) Hypothyroid (Acute) Popliteal artery occlusion, left (Acute) Procedures: Principal: LEFT LEG ANGIOPLASTY Hospital Course: ADMITTED FOR LEFT LEG ARTERIAL OBSTRUCTION WITH ANGIOPLASTY DONE Goals: STARTED ELIQUIS AND ASA, SEE DR OSBORNE IN 2-[address] GOMEZ IN 1 WEEK FOR STAPLE REMOVAL Condition: Good - Instructions Diet, Activity, Other Instructions: LOW SALT/FAT DIET SEE DR GOMEZ IN 1 WEEK FOR STAPLE REMOVAL SEE DR OSBORNE IN 2-3 DAYS F/U LABS ON ELIQUIS AND ASA Referrals: Andrea Osborne MD [Primary Care Provider] - Disposition: HOME - Home Medications Comprehensive Discharge Medication List: Ambulatory Orders Aspirin [ASA -] 81 mg PO DAILY 08/05/15 Atorvastatin Ca [Lipitor] 40 mg PO HS 08/05/15 Folic Acid 1 mg PO DAILY 08/05/15 Levothyroxine [Synthroid -] 112 mcg PO DAILY 08/05/15 Mag Carb/Aluminum Hydrox/Algin [Gaviscon Liquid] 355 ml PO Q4H PRN #0 oral.susp 08/05/15 Metoprolol Succinate [Toprol XL -] 25 mg PO BID 08/05/15 Polyethylene Glycol 3350 [Miralax 255 gm Btl -] 17 gm PO DAILY #1 bottle 08/05/15 Levocetirizine Dihydrochloride 5 mg PO DAILY 07/06/20 Lisinopril [Zestril] 2.5 mg PO DAILY 07/06/20 Pantoprazole Sodium 40 mg PO DAILY 07/06/20 Vit C/E/Zn/Coppr/Lutein/Zeaxan [Preservision Areds 2 Softgel] 1 each PO DAILY 07/06/20 Apixaban [Eliquis -] 5 mg PO BID #60 tablet 07/10/20
[2020-07-10] MEDS: APIXABAN 5 MG TABLET PO SCH (09:54)
[2020-07-10] MEDS: ASPIRIN 81 MG CHEWABLE TABLETS PO SCH (09:54)
[2020-07-10] MEDS: PANTOPRAZOLE 40 MG TABLET PO SCH (09:54)
[2020-07-10] MEDS: FOLIC ACID 1 MG TABLET (FP) PO SCH (09:54)
[2020-07-10] MEDS: LISINOPRIL 5 MG TABLET (FP) PO SCH (09:55)
[2020-07-10] MEDS: metoPROLOL SUCCINATE 25 MG TAB.SR.24H (FP) PO SCH (09:55)
[2020-07-10] MEDS: POLYETHYLENE GLYCOL 3350 255 GM BTL PO SCH (09:56)
[2020-07-10] MEDS: LORATADINE 10 MG TABLET PO SCH (09:56)
[2020-07-10 10:03] VITALS: BP 147/82; PULSE 80; TEMP 98
--- NOTE | 2020-07-12 16:18 | PATH ---
Surgical Pathology Report Patient Name: MARTIN ESPITIA Med. Rec. #: [id number] /Age/Gender: 1940 (Age: 79) / F Account: [id number] Location: [facility] MED/SURG Taken: 07/08/2020 Received: 07/11/2020 Reported: 07/12/2020 Physicians: Eladio Camara M.D. Specimen(s) Received CLOT, LEFT LOWER EXTREMITY (EMBOLUS)- POPLITEAL Clinical History Occlusion of left popliteal artery Final Diagnosis CLOT, LOWER EXTREMITY, POPLITEAL, LEFT, OPEN THROMBECTOMY: ORGANIZED BLOOD CLOT/EMBOLUS. Electronically Signed Chuyita Ruby M.D. Gross Description Received in formalin labeled "clot lower left extremity, popliteal embolus," are 2 red-brown portions of blood clot measuring 0.6 x 0.3 x 0.2 cm and 1.2 x 0.4 x 0.3 cm. The specimens are submitted in toto in one cassette. [facility]
--- NOTE | 2020-07-12 17:29 | OP ---
DATE OF OPERATION: 07/08/2020 PREOPERATIVE DIAGNOSIS: Left lower extremity ischemia due to embolus. POSTOPERATIVE DIAGNOSIS: Left lower extremity ischemia due to embolus. PROCEDURE: Aortogram, left lower extremity angiogram, open embolectomy left lower extremity popliteal artery. SURGEON: Eladio Gomez MD. ANESTHESIA: Fractional. BLOOD LOSS: 50 mL. INDICATION: The patient is an 79-year-old female that comes in with a 2-day history of left lower extremity ischemia. She claims she was out in her garden and she felt pain in her left leg, and she was at home, then the following day her grandson came to the house and said, "your leg looks pale, please go to the ER," and patient came into the ER. Once the patient came into the ER a CTA was performed showing that she has a thrombus in the left popliteal artery/embolus. Patient was started on IV heparin. Patient's cardiology evaluated the patient, and patient was cleared for procedure for angiogram and possible open thrombectomy. Patient was consented for the procedure understanding all risks, benefits, and alternatives and was then taken to the operating room. DESCRIPTION OF PROCEDURE: Once in the operating room, she was laid on the operating table in a supine manner, and the area of the entire left leg from the groin all the way down to the foot was prepped and draped in a sterile surgical manner and bilateral groins were prepped. We then went ahead and injected 10 mL of lidocaine 1% over the right common femoral artery. We then punctured the right common femoral artery using a Micropuncture. A Micropuncture wire was inserted, Micropuncture sheath was inserted, and a traditional 5-Faroese sheath was inserted. We then placed 0.035 floppy guidewire up into the aorta followed by an Omniflush catheter. Then we shot an aortogram via hand injection showing that the aorta and the iliac arteries were without any disease. We then our 0.035 floppy guidewire, went up and over to the left common femoral artery and an angiogram of the left lower extremity was performed showing that the common femoral artery, profunda, and SFA were patent, but the popliteal artery had clot, the below-knee popliteal artery showed clot as well. There was also clot in the tibial arteries and the anterior tibial artery in the peroneal artery, but there was still flow to the foot in the form of the posterior tibial artery and the anterior tibial artery. At this point, we decided that the patient needs open thrombectomy. We went ahead and made a 5-cm incision about the groin crease on the femoral pulse, for which cautery was used to control all hemostasis. Patient had received 20 mL of lidocaine 1%. We then got down through all the subcutaneous tissue using Bovie cautery and got down to the femoral sheath. Femoral sheath was opened. We were then able to dissect down to the common femoral artery, the profunda, and the SFA, and Vesseloops were placed to control each blood vessel. We then went ahead and administered 5000 units of IV heparin to the patient. We then went ahead and got proximal distal control, we then got proximal control on the common femoral artery, and got control of our SFA and our profunda. We then went ahead and used a number 11-blade, made an incision on the common femoral artery. We then went ahead and used a number 4 Maria L and we were able to, under fluoroscopy, get down to the below-knee popiteal artery and do an embolectomy of the embolus, and the embolus was removed and sent to pathology. There was good backbleeding in the SFA, there was good backbleeding in the profunda, there was good bleeding in the common femoral artery proximally. We then went ahead and sent the number 4 Maria L catheter down again and further thrombus was taken out. We sent it down the 3rd time, and after that, no more embolus was taken out. We then placed a micropuncture sheath, and we shot an angiogram of the left lower extremity showing that the popliteal artery was now patent, and there was good flow into the foot, but there was still scattered embolus or thrombus in the anterior tibial artery and posterior tibial artery, but there was good flow to the foot. At this point, we decided that no more intervention would be needed. We went ahead and used a 6-0 Prolene double arm and closed the artery in a running fashion. We then opened our SFA and profunda and opened our common femoral artery proximally, and there was good flow in the artery with minimal bleeding. We then ahead and placed a 0.035 floppy guidewire up into the aorta, and we went up and over to the left common femoral artery and shot an angiogram of the left lower extremity showing that the common femoral artery, the profunda, the SFA were all patent, the popliteal artery was patent, there was good flow going into the PT and the AT, though there was some clot there, but there was good flow going into the foot. We would not anticoagulate the patient on Eliquis due to the fact that this embolus probably came from the heart. At this point, we removed our Omniflush catheter, removed our sheath from the right groin, and a StarClose device was successfully deployed there. Pressure was kept for 5 minutes, after there was no bleeding Dermabond was placed. We then went ahead and irrigated our wound in the left groin copiously, and we went ahead and closed with 3-0 Vicryl, closed the subcutaneous tissue with 3-0 Vicryl in an interrupted manner in 2 layers, and we then closed the skin with skin shashank. 4x4s, Tegaderm tolerated the procedure without complications. Patient was transferred to PACU in stable condition where Eliquis will be started. Patient had good Doppler . ELADIO GOMEZ DO [id number]
== END 2020-07-10 11:26 | disposition home or self-care (01) | DRG 254 ==
LOC: JER 22:22 → JERBED 07-07 02:11 → J8W 07-07 06:45
PROVIDERS: ADMIT Internal Medicine; ATTEND Family Medicine
PROC: B40DYZZ Plain Radiography of Aorta and Bilateral Lower Extremity Arteries using Other Contrast (ICD-10-PCS; 2020-07-08)
PROC: 3E033GC Introduction of Other Therapeutic Substance into Peripheral Vein, Percutaneous Approach (ICD-10-PCS; 2020-07-08)
PROC: 04CN0ZZ Extirpation of Matter from Left Popliteal Artery, Open Approach (ICD-10-PCS; principal; 2020-07-08 09:00)
PROC: B40GYZZ Plain Radiography of Left Lower Extremity Arteries using Other Contrast (ICD-10-PCS; 2020-07-08 09:00)
DX: I74.3 Embolism and thrombosis of arteries of the lower extremities (principal); I10 Essential (primary) hypertension; E78.5 Hyperlipidemia, unspecified; I70.202 Unspecified atherosclerosis of native arteries of extremities, left leg; E03.9 Hypothyroidism, unspecified; K21.9 Gastro-esophageal reflux disease without esophagitis; Z11.59 Encounter for screening for other viral diseases
CPT/HCPCS: 36415; 71046-TC-FY; 73706-TC-RT; 76000-TC-FY; 80053; 85025; 85027; 85610; 85730; 88304-TC; 93005; 93010; 94760; 99285-25; J0131; J1644; U0003

== ENCOUNTER 2022-01-25 10:40 | Day surgery (SDC) | payer OTHER ==
[2022-01-25] MEDS ORDERED: FERRIC CARBOXYMALTOSE 750 MG in SODIUM CHLORIDE 250 ML IVPB ONE (11:15)
[2022-01-25 14:49] VITALS: BP 140/68; PULSE 75; TEMP 98
== END 2022-01-25 12:00 | disposition home or self-care (01) ==
LOC: FINFUSION 10:40 → FM/S 10:43 → FINFUSION 12:00
PROVIDERS: ATTEND Family Medicine
PROC: 3E033GC Introduction of Other Therapeutic Substance into Peripheral Vein, Percutaneous Approach (ICD-10-PCS; principal; 2022-01-25)
DX: D50.9 Iron deficiency anemia, unspecified (principal)
CPT/HCPCS: 96365; J1439

== ENCOUNTER 2022-02-01 11:06 | Day surgery (SDC) | payer OTHER ==
[2022-02-01] MEDS ORDERED: FERRIC CARBOXYMALTOSE 750 MG in SODIUM CHLORIDE 250 ML IVPB ONE (11:45)
[2022-02-01 12:23] VITALS: TEMP 98.8
[2022-02-01 12:48] VITALS: BP 147/64; PULSE 61
== END 2022-02-01 12:30 | disposition home or self-care (01) ==
LOC: FINFUSION 11:06 → FM/S 11:09 → FINFUSION 12:30
PROVIDERS: ATTEND Family Medicine
PROC: 3E033GC Introduction of Other Therapeutic Substance into Peripheral Vein, Percutaneous Approach (ICD-10-PCS; principal; 2022-02-01)
DX: D50.9 Iron deficiency anemia, unspecified (principal)
CPT/HCPCS: 96365; J1439

== ENCOUNTER 2022-09-19 04:39 | Day surgery (SDC) | payer OTHER ==
[2022-09-18 18:33] VITALS: BMI 37.0
[~2022-09-19 04:39] MED LIST: ACETAMINOPHEN 325 MG TABLET (FP) PO PRN; BSS (NA/CA/MG/K) BALANCED SALT SOLUTION OPHTH SOLN 15 ML BOTTLE OD ONE; CHONDROITIN SU A/HYALUR SOD 1 KIT IO ONE; EPINEPHrine/PF 1 MG/1 ML (1:1,000) AMPULE SQ ONE; LIDOCAINE 1% P/F 10 MG/ML VIAL PNB ONE; POVIDONE-IODINE 5% OPHTHALMIC PREP 30 ML SOLUTION OD ONE; TETRACAINE 0.5% HCL 0.6ML DROPPER.BOTTLE OD ONE; TRYPAN BLUE 0.5 ML DISP.SYRIN IO ONE
[2022-09-19] MEDS ORDERED: PHENYLEPHRINE 2.5% OPHTH SOLN 15 ML BOTTLE ONE (07:03)
[2022-09-19] MEDS ORDERED: KETOROLAC TROMETHAMINE 0.5% EYE DROP 1 DROP DROPS ONE (07:03)
[2022-09-19] MEDS ORDERED: CYCLOPENTOLATE HCL 1% OPHTH SOLN 2 ML BOTTLE ONE (07:04)
[2022-09-19] MEDS ORDERED: OFLOXACIN 0.3% OPHTHALMIC SOLUTION 5 ML BOTTLE ONE (07:04)
[2022-09-19] MEDS ORDERED: TROPICAMIDE 1% OPHTH SOLN 15 ML BOTTLE ONE (07:04)
[2022-09-19 07:32] VITALS: RESP 18
[2022-09-19] MEDS: TROPICAMIDE 1% OPHTH SOLN 15 ML BOTTLE OP SCH ×3 (07:45→08:05)
[2022-09-19] MEDS: PHENYLEPHRINE 2.5% OPHTH SOLN 15 ML BOTTLE OP SCH ×3 (07:45→08:05)
[2022-09-19] MEDS: CYCLOPENTOLATE HCL 1% OPHTH SOLN 2 ML BOTTLE OP SCH ×3 (07:45→08:05)
[2022-09-19] MEDS: OFLOXACIN 0.3% OPHTHALMIC SOLUTION 5 ML BOTTLE OP SCH ×3 (07:45→08:05)
[2022-09-19] MEDS: KETOROLAC TROMETHAMINE 0.5% EYE DROP 1 DROP DROPS OP SCH ×3 (07:45→08:05)
[2022-09-19] MEDS ORDERED: MIDAZOLAM HCL 2 MG/2 ML SINGLE DOSE VIAL ONE (09:04)
[2022-09-19] MEDS ORDERED: TETRACAINE 0.5% HCL 0.6ML DROPPER.BOTTLE OD ONE (09:05)
[2022-09-19] MEDS ORDERED: POVIDONE-IODINE 5% OPHTHALMIC PREP 30 ML SOLUTION OD ONE (09:06)
[2022-09-19] MEDS ORDERED: BSS (NA/CA/MG/K) BALANCED SALT SOLUTION OPHTH SOLN 15 ML BOTTLE OD ONE ×2 (09:11)
[2022-09-19] MEDS ORDERED: LIDOCAINE 1% P/F 10 MG/ML VIAL PNB ONE (09:13)
[2022-09-19] MEDS ORDERED: CHONDROITIN SU A/HYALUR SOD 1 KIT IO ONE (09:14)
[2022-09-19] MEDS ORDERED: EPINEPHrine/PF 1 MG/1 ML (1:1,000) AMPULE SQ ONE (09:20)
[2022-09-19 09:59] VITALS: TEMP 97.1
[2022-09-19 10:53] VITALS: BP 126/60; PULSE 73
== END 2022-09-19 10:50 | disposition home or self-care (01) ==
LOC: JASU-SURG 04:39
PROVIDERS: ATTEND Ophthalmology
PROC: 08RJ3JZ Replacement of Right Lens with Synthetic Substitute, Percutaneous Approach (ICD-10-PCS; principal; 2022-09-19 09:00)
DX: H26.9 Unspecified cataract (principal)
CPT/HCPCS: V2632

== ENCOUNTER 2022-10-03 04:25 | Day surgery (SDC) | payer OTHER ==
[2022-10-01 09:15] VITALS: BMI 37.0
[2022-10-03] MEDS ORDERED: TROPICAMIDE 1% OPHTH SOLN 15 ML BOTTLE ONE (06:26)
[2022-10-03] MEDS ORDERED: PHENYLEPHRINE 2.5% OPHTH SOLN 15 ML BOTTLE ONE (06:26)
[2022-10-03] MEDS ORDERED: OFLOXACIN 0.3% OPHTHALMIC SOLUTION 5 ML BOTTLE ONE (06:26)
[2022-10-03] MEDS ORDERED: KETOROLAC TROMETHAMINE 0.5% EYE DROP 1 DROP DROPS ONE (06:26)
[2022-10-03] MEDS ORDERED: CYCLOPENTOLATE HCL 1% OPHTH SOLN 2 ML BOTTLE ONE (06:26)
[2022-10-03] MEDS: CYCLOPENTOLATE HCL 1% OPHTH SOLN 2 ML BOTTLE OP SCH ×3 (06:30→06:40)
[2022-10-03] MEDS: TROPICAMIDE 1% OPHTH SOLN 15 ML BOTTLE OP SCH ×3 (06:30→06:40)
[2022-10-03] MEDS: PHENYLEPHRINE 2.5% OPHTH SOLN 15 ML BOTTLE OP SCH ×3 (06:30→06:40)
[2022-10-03] MEDS: KETOROLAC TROMETHAMINE 0.5% EYE DROP 1 DROP DROPS OP SCH ×3 (06:30→06:40)
[2022-10-03] MEDS: OFLOXACIN 0.3% OPHTHALMIC SOLUTION 5 ML BOTTLE OP SCH ×3 (06:30→06:40)
[2022-10-03] MEDS ORDERED: MIDAZOLAM HCL 2 MG/2 ML SINGLE DOSE VIAL ONE (06:53)
[2022-10-03] MEDS ORDERED: TETRACAINE 0.5% OPHTH SOLN 2 ML BOTTLE OS ONE (08:00)
[2022-10-03] MEDS ORDERED: POVIDONE-IODINE 5% OPHTHALMIC PREP 30 ML SOLUTION OS ONE (08:01)
[2022-10-03] MEDS ORDERED: BSS (NA/CA/MG/K) BALANCED SALT SOLUTION OPHTH SOLN 15 ML BOTTLE IO ONE (08:08)
[2022-10-03] MEDS ORDERED: LIDOCAINE HCL 1% PRESERVATIVE FREE - 30ML VIAL IO ONE (08:09)
[2022-10-03] MEDS ORDERED: CHONDROITIN SU A/HYALUR SOD 1 KIT IO ONE (08:10)
[2022-10-03] MEDS ORDERED: EPINEPHrine/PF 1 MG/1 ML (1:1,000) AMPULE SQ ONE (08:16)
[2022-10-03] MEDS ORDERED: ACETAMINOPHEN 325 MG TABLET (FP) PO PRN (08:24)
[2022-10-03 13:41] VITALS: RESP 20; TEMP 98.1
[2022-10-03 13:44] VITALS: BP 125/58; PULSE 62
== END 2022-10-03 09:15 | disposition home or self-care (01) ==
LOC: JASU-SURG 04:25
PROVIDERS: ATTEND Ophthalmology
PROC: 08RK3JZ Replacement of Left Lens with Synthetic Substitute, Percutaneous Approach (ICD-10-PCS; principal; 2022-10-03 08:00)
DX: H26.9 Unspecified cataract (principal)
CPT/HCPCS: V2632

== ENCOUNTER 2023-03-07 09:53 | Day surgery (SDC) | payer OTHER ==
[2023-03-07] MEDS ORDERED: FERRIC CARBOXYMALTOSE 750 MG in SODIUM CHLORIDE 250 ML IVPB ONE (10:30)
[2023-03-07 16:22] VITALS: BP 130/66; PULSE 78; RESP 18; TEMP 98.1
== END 2023-03-07 16:11 | disposition home or self-care (01) ==
LOC: FINFUSION 09:53 → FM/S 09:53 → FINFUSION 16:11
PROVIDERS: ATTEND Family Medicine
PROC: 3E033GC Introduction of Other Therapeutic Substance into Peripheral Vein, Percutaneous Approach (ICD-10-PCS; principal; 2023-03-07)
DX: D50.9 Iron deficiency anemia, unspecified (principal)
CPT/HCPCS: 96365; J1439

== ENCOUNTER 2023-03-14 10:51 | Day surgery (SDC) | payer OTHER ==
[2023-03-14] MEDS ORDERED: FERRIC CARBOXYMALTOSE 750 MG in SODIUM CHLORIDE 250 ML IVPB ONE (11:00)
[2023-03-14 12:54] VITALS: BP 171/58; PULSE 86; RESP 18; TEMP 98.1
== END 2023-03-14 12:54 | disposition home or self-care (01) ==
LOC: FINFUSION 10:51 → FM/S 10:53 → FINFUSION 12:54
PROVIDERS: ATTEND Family Medicine
PROC: 3E033GC Introduction of Other Therapeutic Substance into Peripheral Vein, Percutaneous Approach (ICD-10-PCS; principal; 2023-03-14)
DX: D50.9 Iron deficiency anemia, unspecified (principal)
CPT/HCPCS: 96365; J1439

== ENCOUNTER 2023-11-13 04:05 | Day surgery (SDC) | payer OTHER ==
[2023-11-07 12:24] VITALS: BMI 34.9
[2023-11-13 09:48] VITALS: TEMP 98.6
[2023-11-13 10:21] LABS: BASO % 0.5 % (0-2.0); HEMATOCRIT 39.3 % (32.4-45.2); HEMOGLOBIN 12.9 GM/dL (10.7-15.3); LYMPH % 5.9 % (8-40); MCH 28.1 pg (25.7-33.7); MCHC 32.7 g/dl (32.0-36.0); MEAN CELL VOLUME 85.7 fl (80-96); MEAN PLT VOLUME 8.1 fl (7.5-11.1); MONO % 5.8 % (3.8-10.2); NEUT % 87.8 % (42.8-82.8); PLATELET COUNT 224 10^3/uL (134-434); RBC 4.58 M/mm3 (3.60-5.2); RDW 13.3 % (11.6-15.6); RETICULOCYTES 0.75 % (0.5-1.5); WHITE BLOOD COUNT 16.2 K/mm3 (4.0-10.0)
[2023-11-13 10:26] VITALS: BP 128/51; PULSE 60; RESP 18
[2023-11-13 10:33] LABS: POTASSIUM 3.8 mmol/L (3.5-5.1)
[2023-11-13 10:35] LABS: ALBUMIN 3.4 g/dl (3.4-5.0); CALCIUM 8.9 mg/dL (8.5-10.1)
[2023-11-13 10:40] LABS: BILIRUBIN,TOTAL 0.6 mg/dL (0.2-1); TOT PROT 6.8 g/dl (6.4-8.2)
== END 2023-11-13 10:18 | disposition home or self-care (01) ==
LOC: JASU-ENDO 04:05
PROVIDERS: ATTEND Internal Medicine Gastroenterology
PROC: 0D9N8ZX Drainage of Sigmoid Colon, Via Natural or Artificial Opening Endoscopic, Diagnostic (ICD-10-PCS; 2023-11-13)
PROC: 0DB98ZX Excision of Duodenum, Via Natural or Artificial Opening Endoscopic, Diagnostic (ICD-10-PCS; 2023-11-13)
PROC: 0DB78ZX Excision of Stomach, Pylorus, Via Natural or Artificial Opening Endoscopic, Diagnostic (ICD-10-PCS; 2023-11-13)
PROC: 0DB68ZX Excision of Stomach, Via Natural or Artificial Opening Endoscopic, Diagnostic (ICD-10-PCS; 2023-11-13)
PROC: 0DB28ZX Excision of Middle Esophagus, Via Natural or Artificial Opening Endoscopic, Diagnostic (ICD-10-PCS; 2023-11-13)
PROC: 0DB38ZX Excision of Lower Esophagus, Via Natural or Artificial Opening Endoscopic, Diagnostic (ICD-10-PCS; 2023-11-13)
PROC: 0D9M8ZX Drainage of Descending Colon, Via Natural or Artificial Opening Endoscopic, Diagnostic (ICD-10-PCS; principal; 2023-11-13 09:00)
DX: Z12.11 Encounter for screening for malignant neoplasm of colon (principal); K57.30 Diverticulosis of large intestine without perforation or abscess without bleeding; K64.8 Other hemorrhoids; K21.00 Gastro-esophageal reflux disease with esophagitis, without bleeding; K29.50 Unspecified chronic gastritis without bleeding; R19.4 Change in bowel habit; R10.13 Epigastric pain; R10.84 Generalized abdominal pain
CPT/HCPCS: 36415; 80053; 82728; 82962; 83516; 83540; 83550; 85025; 85045; 86140; 86255; 86671; 88305-TC; 88342-TC

== ENCOUNTER 2024-05-12 13:25 | Inpatient (IN) | payer OTHER ==
[2024-05-12 13:36] VITALS: BMI 37.0
[2024-05-12] MEDS ORDERED: METOPROLOL TARTRATE 25 MG TABLET (FP) ONE (14:40)
[2024-05-12] MEDS ORDERED: METOPROLOL TARTRATE 5 MG/5 ML VIAL ONE ×2 (14:41→14:51)
[2024-05-12] MEDS: METOPROLOL TARTRATE 5 MG/5 ML VIAL IVPUSH ONE ×2 (14:50→14:58)
[2024-05-12] MEDS: METOPROLOL TARTRATE 25 MG TABLET (FP) PO ONE (14:50)
[2024-05-12 15:24] LABS: BASO % 0.5 % (0-2.0); EOS % 0.3 % (0-4.5); HEMATOCRIT 41.3 % (32.4-45.2); HEMOGLOBIN 13.2 GM/dL (10.7-15.3); LYMPH % 12.5 % (8-40); MCH 25.9 pg (25.7-33.7); MCHC 32.1 g/dl (32.0-36.0); MEAN CELL VOLUME 80.8 fl (80-96); MEAN PLT VOLUME 8.8 fl (7.5-11.1); MONO % 5.8 % (3.8-10.2); NEUT % 80.9 % (42.8-82.8); PLATELET COUNT 282 10^3/uL (134-434); RBC 5.11 M/mm3 (3.60-5.2); RDW 15.9 % (11.6-15.6)
[2024-05-12 15:26] LABS: INR 1.04 (0.83-1.09); PROTHROMBIN TIME (PATIENT) 11.9 SEC (9.7-13.0)
[2024-05-12 15:29] LABS: ACTIVATED PTT 33.6 SECONDS (25.2-36.5)
[2024-05-12 15:40] LABS: POTASSIUM 4.5 mmol/L (3.5-5.1)
[2024-05-12 15:43] LABS: BLOOD UREA NITROGEN 20.9 mg/dL (7-18); CALCIUM 9.8 mg/dL (8.5-10.1)
[2024-05-12 15:44] LABS: ALBUMIN 3.9 g/dl (3.4-5.0)
[2024-05-12 15:48] LABS: BILIRUBIN,TOTAL 0.6 mg/dL (0.2-1); TOT PROT 7.7 g/dl (6.4-8.2)
[2024-05-12] MEDS ORDERED: METOPROLOL TARTRATE 5 MG/5 ML VIAL IVPUSH PRN (17:30)
[2024-05-12] MEDS: metoPROLOL SUCCINATE 25 MG TAB.SR.24H (FP) PO SCH (22:29)
[2024-05-12] MEDS: APIXABAN 5 MG TABLET PO SCH (22:29)
[2024-05-12] MEDS: ATORVASTATIN CA 40 MG TABLET (FP) PO SCH (22:29)
[2024-05-13] MEDS: ASPIRIN 325 MG ENTERIC COATED TABLET (FP) PO ONE (01:33)
[2024-05-13] MEDS: LEVOTHYROXINE NA 100 MCG TABLET (FP) PO SCH (06:44)
[2024-05-13 07:26] LABS: BASO % 0.6 % (0-2.0); EOS % 0.7 % (0-4.5); HEMATOCRIT 36.2 % (32.4-45.2); HEMOGLOBIN 11.7 GM/dL (10.7-15.3); LYMPH % 16.5 % (8-40); MCH 26.1 pg (25.7-33.7); MCHC 32.3 g/dl (32.0-36.0); MEAN CELL VOLUME 80.9 fl (80-96); MEAN PLT VOLUME 8.4 fl (7.5-11.1); MONO % 5.7 % (3.8-10.2); NEUT % 76.5 % (42.8-82.8); PLATELET COUNT 256 10^3/uL (134-434); RBC 4.48 M/mm3 (3.60-5.2); RDW 15.6 % (11.6-15.6); WHITE BLOOD COUNT 13.8 K/mm3 (4.0-10.0)
[2024-05-13 07:51] LABS: POTASSIUM 4.7 mmol/L (3.5-5.1)
[2024-05-13 08:02] LABS: BLOOD UREA NITROGEN 22.1 mg/dL (7-18); CALCIUM 9.3 mg/dL (8.5-10.1)
[2024-05-13 08:03] LABS: ALBUMIN 3.6 g/dl (3.4-5.0); MAGNESIUM 2.4 mg/dL (1.8-2.4)
[2024-05-13 08:06] LABS: CREATININE 0.9 mg/dL (0.55-1.3)
[2024-05-13 08:07] LABS: TOT PROT 6.6 g/dl (6.4-8.2)
[2024-05-13 08:08] LABS: BILIRUBIN,TOTAL 0.5 mg/dL (0.2-1)
[2024-05-13] MEDS ORDERED: HEPARIN NA (PORCINE) 5,000 UNITS/ML 1ML VIAL IVPUSH PRN (08:12)
[2024-05-13] MEDS: LOSARTAN POTASSIUM 50 MG TABLET PO SCH (10:45)
[2024-05-13] MEDS: PANTOPRAZOLE 40 MG TABLET PO SCH (10:45)
[2024-05-13] MEDS: ASPIRIN COATED 81 MG TABLET.EC PO SCH (10:45)
[2024-05-13] MEDS: POLYETHYLENE GLYCOL (HEALTHYLAX) 3350 17 GM PACKET PO SCH (10:45)
[2024-05-13 12:49] LABS: INR 1.14 (0.83-1.09); PROTHROMBIN TIME (PATIENT) 12.8 SEC (9.7-13.0)
[2024-05-13] MEDS: HEPARIN SOD,PORK IN 0.45% NACL 25,000 UNITS/500 ML INFUS.BAG IVPB SCH (13:24)
[2024-05-13] MEDS: HEPARIN NA (PORCINE) 5,000 UNITS/ML 1ML VIAL IVPUSH PRN (22:30)
[2024-05-14 20:30] VITALS: RESP 18
[2024-05-14] MEDS: APIXABAN 5 MG TABLET PO SCH (21:40)
[2024-05-15 07:36] LABS: EOS % 1.5 % (0-4.5); HEMATOCRIT 32.2 % (32.4-45.2); HEMOGLOBIN 10.7 GM/dL (10.7-15.3); LYMPH % 22.7 % (8-40); MCH 26.6 pg (25.7-33.7); MCHC 33.3 g/dl (32.0-36.0); MEAN CELL VOLUME 79.7 fl (80-96); MEAN PLT VOLUME 9.1 fl (7.5-11.1); NEUT % 66.8 % (42.8-82.8); PLATELET COUNT 201 10^3/uL (134-434); RBC 4.04 M/mm3 (3.60-5.2); RDW 15.8 % (11.6-15.6); WHITE BLOOD COUNT 8.5 K/mm3 (4.0-10.0)
[2024-05-15 09:44] LABS: POTASSIUM 3.9 mmol/L (3.5-5.1)
[2024-05-15 09:51] LABS: BLOOD UREA NITROGEN 17.6 mg/dL (7-18)
[2024-05-15 09:52] LABS: CALCIUM 8.7 mg/dL (8.5-10.1)
[2024-05-15 09:55] LABS: CREATININE 0.9 mg/dL (0.55-1.3)
[2024-05-15 09:57] LABS: BILIRUBIN,TOTAL 0.6 mg/dL (0.2-1)
[2024-05-15 10:01] LABS: TOT PROT 6.2 g/dl (6.4-8.2)
[2024-05-15 13:45] VITALS: BP 142/44; PULSE 68; TEMP 99
== END 2024-05-15 15:00 | disposition home or self-care (01) | DRG 308 ==
LOC: JER 13:25 → JERBED 17:19 → OBSVTOIN 17:30 → J4W 20:59
PROVIDERS: ADMIT Family Medicine; ATTEND Family Medicine
DX: I48.91 Unspecified atrial fibrillation (principal); I63.512 Cerebral infarction due to unspecified occlusion or stenosis of left middle cerebral artery; R47.01 Aphasia; G81.92 Hemiplegia, unspecified affecting left dominant side; I10 Essential (primary) hypertension; E78.5 Hyperlipidemia, unspecified; K21.9 Gastro-esophageal reflux disease without esophagitis; E03.9 Hypothyroidism, unspecified; I73.9 Peripheral vascular disease, unspecified; R29.707 NIHSS score 7
CPT/HCPCS: 36415; 70450-TC; 70496-TC; 70498-TC; 70551-TC; 71045-TC-FY; 80053; 82962; 83735; 84436; 84439; 84443; 84484; 85025; 85610; 85730; 87635; 93005; 93010; 93306-TC; 93880-TC; 97116-GP; 97162-GP; 99285-25; G0378; J1644; Q9967

== ENCOUNTER 2024-06-06 23:20 | Inpatient (IN) | payer OTHER ==
[2024-06-07 02:40] LABS: BASO % 0.7 % (0-2.0); EOS % 5.9 % (0-4.5); HEMATOCRIT 23.6 % (32.4-45.2); HEMOGLOBIN 7.8 GM/dL (10.7-15.3); LYMPH % 19.9 % (8-40); MCH 25.8 pg (25.7-33.7); MCHC 32.9 g/dl (32.0-36.0); MEAN CELL VOLUME 78.4 fl (80-96); MEAN PLT VOLUME 7.8 fl (7.5-11.1); MONO % 6.9 % (3.8-10.2); NEUT % 66.6 % (42.8-82.8); PLATELET COUNT 245 10^3/uL (134-434); RDW 14.8 % (11.6-15.6); WHITE BLOOD COUNT 10.8 K/mm3 (4.0-10.0)
[2024-06-07 02:44] LABS: INR 1.24 (0.83-1.09); PROTHROMBIN TIME (PATIENT) 14.2 SEC (9.7-13.0)
[2024-06-07 02:47] LABS: ACTIVATED PTT 33.8 SECONDS (25.2-36.5)
[2024-06-07 03:00] LABS: POTASSIUM 4.8 mmol/L (3.5-5.1)
[2024-06-07 03:03] LABS: ALBUMIN 3.4 g/dl (3.4-5.0); BLOOD UREA NITROGEN 36.1 mg/dL (7-18)
[2024-06-07 03:05] LABS: CREATININE 1.3 mg/dL (0.55-1.3)
[2024-06-07 03:08] LABS: BILIRUBIN,TOTAL 0.4 mg/dL (0.2-1); TOT PROT 6.4 g/dl (6.4-8.2)
[2024-06-07] MEDS ORDERED: PANTOPRAZOLE SODIUM 40 MG VIAL ONE (04:02)
[2024-06-07] MEDS: PANTOPRAZOLE SODIUM 40 MG VIAL IVPUSH ONE (04:09)
[2024-06-07] MEDS: SODIUM CHLORIDE 500 ML IV STA (05:56)
[2024-06-07] MEDS: SODIUM CHLORIDE 0.45% 1,000 ML IV SCH (06:41)
[2024-06-07 06:44] LABS: HEMATOCRIT 24.4 % (32.4-45.2); HEMOGLOBIN 7.9 GM/dL (10.7-15.3); MCH 25.6 pg (25.7-33.7); MCHC 32.3 g/dl (32.0-36.0); MEAN CELL VOLUME 79.3 fl (80-96); MEAN PLT VOLUME 8.4 fl (7.5-11.1); PLATELET COUNT 260 10^3/uL (134-434); RBC 3.08 M/mm3 (3.60-5.2); RDW 14.9 % (11.6-15.6); WHITE BLOOD COUNT 11.6 K/mm3 (4.0-10.0)
[2024-06-07 06:53] LABS: MAGNESIUM 2.3 mg/dL (1.8-2.4)
[2024-06-07] MEDS ORDERED: LEVOTHYROXINE NA 112 MCG TABLET (FP) PO SCH (10:00)
[2024-06-07] MEDS: LEVOTHYROXINE NA 112 MCG TABLET (FP) PO SCH (10:34)
[2024-06-07 12:54] VITALS: BMI 33.4
[2024-06-07] MEDS: PANTOPRAZOLE SODIUM 40 MG VIAL IVPUSH SCH (21:44)
[2024-06-07] MEDS: ATORVASTATIN CA 40 MG TABLET (FP) PO SCH (21:45)
[2024-06-08 07:53] LABS: BASO % 0.8 % (0-2.0); EOS % 6.7 % (0-4.5); HEMATOCRIT 25.7 % (32.4-45.2); HEMOGLOBIN 8.4 GM/dL (10.7-15.3); LYMPH % 20.1 % (8-40); MCH 25.8 pg (25.7-33.7); MCHC 32.8 g/dl (32.0-36.0); MEAN CELL VOLUME 78.7 fl (80-96); MONO % 6.8 % (3.8-10.2); NEUT % 65.6 % (42.8-82.8); PLATELET COUNT 232 10^3/uL (134-434); RBC 3.26 M/mm3 (3.60-5.2); RDW 15.5 % (11.6-15.6); WHITE BLOOD COUNT 9.1 K/mm3 (4.0-10.0)
[2024-06-08 08:13] LABS: POTASSIUM 4.4 mmol/L (3.5-5.1)
[2024-06-08 08:22] LABS: CALCIUM 8.8 mg/dL (8.5-10.1)
[2024-06-08 08:23] LABS: BLOOD UREA NITROGEN 20.2 mg/dL (7-18)
[2024-06-08 08:26] LABS: CREATININE 0.9 mg/dL (0.55-1.3)
[2024-06-08] MEDS: ASPIRIN COATED 81 MG TABLET.EC PO SCH (09:58)
[2024-06-08] MEDS: IRON SUCROSE INJECTION 200 MG in SODIUM CHLORIDE 100 ML IVPB ONE (09:58)
[2024-06-08] MEDS ORDERED: PANTOPRAZOLE 40 MG TABLET PO SCH (10:00)
[2024-06-09 11:33] LABS: EOS % 6.2 % (0-4.5); HEMATOCRIT 27.8 % (32.4-45.2); HEMOGLOBIN 9.1 GM/dL (10.7-15.3); LYMPH % 13.4 % (8-40); MCH 25.7 pg (25.7-33.7); MCHC 32.7 g/dl (32.0-36.0); MEAN CELL VOLUME 78.4 fl (80-96); MEAN PLT VOLUME 7.9 fl (7.5-11.1); MONO % 7.2 % (3.8-10.2); NEUT % 72.2 % (42.8-82.8); PLATELET COUNT 248 10^3/uL (134-434); RBC 3.54 M/mm3 (3.60-5.2); RDW 15.6 % (11.6-15.6); WHITE BLOOD COUNT 9.1 K/mm3 (4.0-10.0)
[2024-06-09 11:58] LABS: POTASSIUM 4.2 mmol/L (3.5-5.1)
[2024-06-09 12:00] LABS: ALBUMIN 3.1 g/dl (3.4-5.0); CALCIUM 9.1 mg/dL (8.5-10.1)
[2024-06-09 12:01] LABS: BLOOD UREA NITROGEN 13.6 mg/dL (7-18)
[2024-06-09 12:03] LABS: CREATININE 0.9 mg/dL (0.55-1.3)
[2024-06-09 12:05] LABS: BILIRUBIN,TOTAL 0.6 mg/dL (0.2-1); TOT PROT 6.1 g/dl (6.4-8.2)
[2024-06-09] MEDS ORDERED: ATORVASTATIN CA 20 MG TABLET (FP) ONE (21:29)
[2024-06-09] MEDS: METOPROLOL TARTRATE 25 MG TABLET (FP) PO ONE (21:35)
[2024-06-10 08:19] LABS: BASO % 0.7 % (0-2.0); EOS % 6.9 % (0-4.5); HEMATOCRIT 24.9 % (32.4-45.2); HEMOGLOBIN 8.2 GM/dL (10.7-15.3); LYMPH % 21.1 % (8-40); MCH 25.8 pg (25.7-33.7); MCHC 32.9 g/dl (32.0-36.0); MEAN CELL VOLUME 78.6 fl (80-96); MEAN PLT VOLUME 7.6 fl (7.5-11.1); MONO % 7.8 % (3.8-10.2); NEUT % 63.5 % (42.8-82.8); PLATELET COUNT 233 10^3/uL (134-434); RBC 3.16 M/mm3 (3.60-5.2); RDW 15.2 % (11.6-15.6); WHITE BLOOD COUNT 10.7 K/mm3 (4.0-10.0)
[2024-06-10] MEDS: IRON SUCROSE INJECTION 200 MG in SODIUM CHLORIDE 100 ML IVPB ONE (14:54)
[2024-06-10] MEDS: APIXABAN 5 MG TABLET PO SCH (21:36)
[2024-06-10] MEDS ORDERED: APIXABAN 2.5 MG TABLET PO SCH (22:00)
[2024-06-11] MEDS: ACETAMINOPHEN 500 MG TABLET (FP) PO ONE (05:45)
[2024-06-11] MEDS: PANTOPRAZOLE 40 MG TABLET PO ONE (05:45)
[2024-06-11 07:17] LABS: BASO % 0.7 % (0-2.0); EOS % 7.2 % (0-4.5); HEMATOCRIT 25.6 % (32.4-45.2); HEMOGLOBIN 8.4 GM/dL (10.7-15.3); LYMPH % 19.7 % (8-40); MCHC 32.6 g/dl (32.0-36.0); MEAN CELL VOLUME 79.8 fl (80-96); MEAN PLT VOLUME 7.7 fl (7.5-11.1); NEUT % 65.4 % (42.8-82.8); PLATELET COUNT 240 10^3/uL (134-434); RBC 3.21 M/mm3 (3.60-5.2); RDW 15.7 % (11.6-15.6); WHITE BLOOD COUNT 9.9 K/mm3 (4.0-10.0)
[2024-06-11 08:18] LABS: CALCIUM 8.9 mg/dL (8.5-10.1)
[2024-06-11 08:19] LABS: BLOOD UREA NITROGEN 15.1 mg/dL (7-18)
[2024-06-11 08:22] LABS: CREATININE 0.9 mg/dL (0.55-1.3)
[2024-06-11 09:32] VITALS: RESP 20
[2024-06-11 17:19] VITALS: BP 110/60; PULSE 116; TEMP 98.6
== END 2024-06-11 17:57 | disposition home or self-care (01) | DRG 379 ==
LOC: JER 23:20 → JERBED 06-07 04:01 → J4W 06-07 12:33
PROVIDERS: ADMIT Internal Medicine; ATTEND Family Medicine
PROC: 0DJ08ZZ Inspection of Upper Intestinal Tract, Via Natural or Artificial Opening Endoscopic (ICD-10-PCS; principal; 2024-06-10 11:00)
DX: K92.2 Gastrointestinal hemorrhage, unspecified (principal); I10 Essential (primary) hypertension; E78.5 Hyperlipidemia, unspecified; I48.91 Unspecified atrial fibrillation; E03.9 Hypothyroidism, unspecified; K21.9 Gastro-esophageal reflux disease without esophagitis; I73.9 Peripheral vascular disease, unspecified; D64.9 Anemia, unspecified
CPT/HCPCS: 36415; 36430; 80048; 80053; 82272; 82728; 83540; 83550; 83735; 84100; 84466; 84484; 85025; 85027; 85045; 85610; 85730; 86850; 86900; 86901; 86922; 93005; 93010; 99285-25; J1756; P9038; P9058

== ENCOUNTER 2024-07-20 10:05 | Inpatient (IN) | payer OTHER ==
[2024-07-20 10:52] LABS: VENOUS BASE EXCESS -4.1 mmol/L (-2-2); VENOUS O2 SATURATION 18.2 % (70-80); VENOUS PCO2 49.2 mmHg (38-52); VENOUS PH 7.282 (7.310-7.410)
[2024-07-20 10:55] LABS: BASO % 0.6 % (0-2.0); EOS % 0.1 % (0-4.5); HEMATOCRIT 31.6 % (32.4-45.2); LYMPH % 7.8 % (8-40); MCH 24.2 pg (25.7-33.7); MCHC 31.6 g/dl (32.0-36.0); MEAN CELL VOLUME 76.7 fl (80-96); MONO % 6.7 % (3.8-10.2); NEUT % 84.8 % (42.8-82.8); PLATELET COUNT 326 10^3/uL (134-434); RBC 4.12 M/mm3 (3.60-5.2); RDW 18.1 % (11.6-15.6); WHITE BLOOD COUNT 19.8 K/mm3 (4.0-10.0)
[2024-07-20 10:57] LABS: URINE APPEARANCE CLEAR; URINE BILIRUBIN NEGATIVE (NEGATIVE); URINE COLOR YELLOW; URINE GLUCOSE (UA) NEGATIVE (NEGATIVE); URINE KETONE NEGATIVE (NEGATIVE); URINE LEUK ESTERASE NEGATIVE (NEGATIVE); URINE NITRITE NEGATIVE (NEGATIVE); URINE PROTEIN TRACE (NEGATIVE)
[2024-07-20 11:01] LABS: INR 1.32 (0.83-1.09); PROTHROMBIN TIME (PATIENT) 15.1 SEC (9.7-13.0)
[2024-07-20 11:04] LABS: ACTIVATED PTT 35.6 SECONDS (25.2-36.5)
[2024-07-20] MEDS ORDERED: CEFTRIAXONE 1 GM/50 ML BAG ONE (11:10)
[2024-07-20 11:11] LABS: POTASSIUM 4.6 mmol/L (3.5-5.1)
[2024-07-20 11:13] LABS: ALBUMIN 3.8 g/dl (3.4-5.0); CALCIUM 9.4 mg/dL (8.5-10.1)
[2024-07-20 11:14] LABS: BLOOD UREA NITROGEN 22.5 mg/dL (7-18); MAGNESIUM 2.2 mg/dL (1.8-2.4)
[2024-07-20] MEDS ORDERED: AZITHROMYCIN IVPB 500 MG/250 ML BAG IVPB ONE (11:16)
[2024-07-20 11:17] LABS: CREATININE 1.1 mg/dL (0.55-1.3)
[2024-07-20 11:18] LABS: BILIRUBIN,TOTAL 0.7 mg/dL (0.2-1); TOT PROT 7.4 g/dl (6.4-8.2)
[2024-07-20] MEDS: AZITHROMYCIN IVPB 500 MG in DEXTROSE 5%-WATER - 250 ML IVPB ONE (11:23)
[2024-07-20 11:27] LABS: N-TERMINAL BNP 2216.5 pg/ml (5-450)
[2024-07-20 12:12] LABS: HIV INTERPRETATION NEGATIVE (NEGATIVE)
[2024-07-20] MEDS ORDERED: APIXABAN 5 MG TABLET ONE (21:22)
[2024-07-20] MEDS ORDERED: FUROSEMIDE 40 MG/4 ML INJECTABLE VIAL ONE (21:22)
[2024-07-20] MEDS ORDERED: ATORVASTATIN CA 40 MG TABLET (FP) ONE (21:22)
[2024-07-20] MEDS: APIXABAN 5 MG TABLET PO SCH (21:42)
[2024-07-20] MEDS: FUROSEMIDE 40 MG/4 ML INJECTABLE VIAL IVPUSH ONE (21:42)
[2024-07-20] MEDS: ATORVASTATIN CA 40 MG TABLET (FP) PO SCH (21:42)
[2024-07-21 07:10] LABS: BASO % 0.1 % (0-2.0); HEMATOCRIT 31.7 % (32.4-45.2); LYMPH % 7.9 % (8-40); MCH 24.4 pg (25.7-33.7); MCHC 31.6 g/dl (32.0-36.0); MEAN CELL VOLUME 77.1 fl (80-96); MEAN PLT VOLUME 8.4 fl (7.5-11.1); MONO % 9.4 % (3.8-10.2); NEUT % 82.6 % (42.8-82.8); PLATELET COUNT 266 10^3/uL (134-434); RBC 4.11 M/mm3 (3.60-5.2); RDW 18.4 % (11.6-15.6); WHITE BLOOD COUNT 16.5 K/mm3 (4.0-10.0)
[2024-07-21 07:14] LABS: POTASSIUM 3.9 mmol/L (3.5-5.1)
[2024-07-21 07:16] LABS: CALCIUM 8.9 mg/dL (8.5-10.1)
[2024-07-21 07:17] LABS: ALBUMIN 3.2 g/dl (3.4-5.0); BLOOD UREA NITROGEN 17.4 mg/dL (7-18)
[2024-07-21 07:20] LABS: PHOSPHOROUS 4.7 mg/dL (2.5-4.9)
[2024-07-21 07:21] LABS: BILIRUBIN,TOTAL 0.7 mg/dL (0.2-1); TOT PROT 6.6 g/dl (6.4-8.2)
[2024-07-21] MEDS: LEVOTHYROXINE NA 100 MCG TABLET (FP) PO SCH (07:35)
[2024-07-21] MEDS ORDERED: AZITHROMYCIN IVPB 500 MG/250 ML BAG IVPB ONE (10:03)
[2024-07-21] MEDS ORDERED: CEFTRIAXONE 1 GM/50 ML BAG ONE (10:03)
[2024-07-21] MEDS: CEFTRIAXONE 1,000 MG in DEXTROSE 5%-WATER - 50 ML IVPB SCH (10:23)
[2024-07-21] MEDS: AZITHROMYCIN IVPB 500 MG/250 ML BAG IVPB SCH (10:24)
[2024-07-21] MEDS ORDERED: DEXAMETHASONE SOD PHOSPHATE 4 MG/1 ML VIAL ONE (12:20)
[2024-07-21] MEDS ORDERED: FUROSEMIDE 40 MG/4 ML INJECTABLE VIAL ONE (12:20)
[2024-07-21] MEDS: DEXAMETHASONE SOD PHOSPHATE 4 MG/1 ML VIAL IVPUSH SCH (12:34)
[2024-07-21] MEDS: FUROSEMIDE 40 MG/4 ML INJECTABLE VIAL IVPUSH ONE (12:34)
[2024-07-21] MEDS: REMDESIVIR 200 MG in SODIUM CHLORIDE 250 ML IVPB ONE (14:48)
[2024-07-21] MEDS: ASPIRIN COATED 81 MG TABLET.EC PO SCH (15:56)
[2024-07-21] MEDS ORDERED: METOPROLOL TARTRATE 5 MG/5 ML VIAL ONE (18:42)
[2024-07-21] MEDS: ONDANSETRON 4 MG/2 ML VIAL IVPUSH ONE (18:43)
[2024-07-21] MEDS: METOPROLOL TARTRATE 5 MG/5 ML VIAL IVPUSH PRN (18:43)
[2024-07-21] MEDS ORDERED: AMIODARONE IN DEXTROSE,ISO-OSM 150 MG/100 ML BAG ONE (19:16)
[2024-07-21] MEDS: AMIODARONE HCL IVPB ONE (19:30)
[2024-07-21] MEDS: WATER IVPB ONE (19:30)
[2024-07-21] MEDS: DEXTROSE 5% IVPB ONE (19:30)
[2024-07-21] MEDS: AMIODARONE IN DEXTROSE,ISO-OSM 360 MG/200 ML BAG IV SCH (19:50)
[2024-07-21] MEDS: ATORVASTATIN CA 40 MG TABLET (FP) PO SCH (21:15)
[2024-07-21] MEDS: MUPIROCIN 2% TOPICAL OINTMENT FOR DECOLONIZATION NS SCH (21:15)
[2024-07-21] MEDS: APIXABAN 5 MG TABLET PO SCH (21:15)
[2024-07-21] MEDS: CHLORHEXIDINE GLUCONATE 4% CLEANSER FOR DECOLONIZATION TP SCH (21:17)
[2024-07-22] MEDS: AMIODARONE IN DEXTROSE,ISO-OSM 360 MG/200 ML BAG IV SCH (01:10)
[2024-07-22] MEDS: LEVOTHYROXINE NA 100 MCG TABLET (FP) PO SCH (07:24)
[2024-07-22 07:33] LABS: POTASSIUM 3.8 mmol/L (3.5-5.1)
[2024-07-22 07:37] LABS: BASO % 0.2 % (0-2.0); HEMATOCRIT 30.8 % (32.4-45.2); HEMOGLOBIN 9.8 GM/dL (10.7-15.3); LYMPH % 9.2 % (8-40); MCH 24.9 pg (25.7-33.7); MCHC 31.8 g/dl (32.0-36.0); MEAN CELL VOLUME 78.3 fl (80-96); MEAN PLT VOLUME 8.5 fl (7.5-11.1); MONO % 6.3 % (3.8-10.2); NEUT % 84.3 % (42.8-82.8); PLATELET COUNT 247 10^3/uL (134-434); RBC 3.94 M/mm3 (3.60-5.2); RDW 18.7 % (11.6-15.6); WHITE BLOOD COUNT 10.5 K/mm3 (4.0-10.0)
[2024-07-22 07:44] LABS: ALBUMIN 3.1 g/dl (3.4-5.0); CALCIUM 9.2 mg/dL (8.5-10.1)
[2024-07-22 07:45] LABS: BLOOD UREA NITROGEN 28.3 mg/dL (7-18); MAGNESIUM 2.4 mg/dL (1.8-2.4)
[2024-07-22 07:48] LABS: PHOSPHOROUS 3.5 mg/dL (2.5-4.9)
[2024-07-22 07:49] LABS: TOT PROT 6.6 g/dl (6.4-8.2)
[2024-07-22] MEDS: DEXAMETHASONE SOD PHOSPHATE 4 MG/1 ML VIAL IVPUSH SCH (09:09)
[2024-07-22] MEDS: CEFTRIAXONE 1 GM in DEXTROSE 5%-WATER - 50 ML IVPB SCH (09:12)
[2024-07-22] MEDS: AZITHROMYCIN IVPB 500 MG/250 ML BAG IVPB SCH (09:13)
[2024-07-22] MEDS ORDERED: CEFTRIAXONE 1 GM in DEXTROSE 5%-WATER - 50 ML IVPB SCH (10:00)
[2024-07-22] MEDS: REMDESIVIR 100 MG in SODIUM CHLORIDE 250 ML IVPB SCH (13:33)
[2024-07-22] MEDS ORDERED: REMDESIVIR 100 MG in SODIUM CHLORIDE 250 ML IVPB SCH (14:00)
[2024-07-22] MEDS: DOXYCYCLINE INJECTION 100 MG in DEXTROSE 5%-WATER 100 ML IVPB SCH (22:45)
[2024-07-23 06:54] LABS: HEMATOCRIT 31.2 % (32.4-45.2); HEMOGLOBIN 9.8 GM/dL (10.7-15.3); MCH 24.2 pg (25.7-33.7); MCHC 31.3 g/dl (32.0-36.0); MEAN CELL VOLUME 77.4 fl (80-96); MEAN PLT VOLUME 8.7 fl (7.5-11.1); PLATELET COUNT 287 10^3/uL (134-434); RBC 4.03 M/mm3 (3.60-5.2); RDW 18.8 % (11.6-15.6); WHITE BLOOD COUNT 14.3 K/mm3 (4.0-10.0)
[2024-07-23] MEDS: LEVOTHYROXINE NA 88 MCG TABLET (FP) PO SCH (06:59)
[2024-07-23 07:06] LABS: POTASSIUM 3.7 mmol/L (3.5-5.1)
[2024-07-23 07:08] LABS: ALBUMIN 2.8 g/dl (3.4-5.0); BLOOD UREA NITROGEN 24.8 mg/dL (7-18); CALCIUM 9.2 mg/dL (8.5-10.1); MAGNESIUM 2.4 mg/dL (1.8-2.4)
[2024-07-23 07:12] LABS: CREATININE 0.9 mg/dL (0.55-1.3); PHOSPHOROUS 3.6 mg/dL (2.5-4.9)
[2024-07-23 07:13] LABS: BILIRUBIN,TOTAL 0.4 mg/dL (0.2-1); TOT PROT 6.1 g/dl (6.4-8.2)
[2024-07-24] MEDS: POLYETHYLENE GLYCOL (HEALTHYLAX) 3350 17 GM PACKET PO ONE (21:00)
[2024-07-25 08:53] LABS: HEMOGLOBIN 11.1 GM/dL (10.7-15.3); MCH 24.2 pg (25.7-33.7); MCHC 31.8 g/dl (32.0-36.0); MEAN CELL VOLUME 76.1 fl (80-96); MEAN PLT VOLUME 8.8 fl (7.5-11.1); PLATELET COUNT 362 10^3/uL (134-434); RDW 19.3 % (11.6-15.6); WHITE BLOOD COUNT 9.2 K/mm3 (4.0-10.0)
[2024-07-25 09:13] LABS: POTASSIUM 4.3 mmol/L (3.5-5.1)
[2024-07-25 09:15] LABS: ALBUMIN 3.2 g/dl (3.4-5.0); BLOOD UREA NITROGEN 34.1 mg/dL (7-18); CALCIUM 9.8 mg/dL (8.5-10.1)
[2024-07-25 09:18] LABS: CREATININE 1.1 mg/dL (0.55-1.3)
[2024-07-25 09:20] LABS: BILIRUBIN,TOTAL 0.6 mg/dL (0.2-1); TOT PROT 6.6 g/dl (6.4-8.2)
[2024-07-25] MEDS: DIGOXIN 0.125 MG TABLET PO SCH (17:41)
[2024-07-25] MEDS: POLYETHYLENE GLYCOL (HEALTHYLAX) 3350 17 GM PACKET PO SCH (17:41)
[2024-07-25] MEDS: SENNOSIDES 8.6MG TABLET (FP) PO PRN (21:37)
[2024-07-26] MEDS: FUROSEMIDE 20 MG TABLET (FP) PO SCH (11:04)
[2024-07-27 15:38] VITALS: BMI 33.2
[2024-07-28 06:46] VITALS: RESP 18
[2024-07-28 15:41] VITALS: BP 140/86; PULSE 92; TEMP 97.5
== END 2024-07-28 15:47 | disposition home or self-care (01) | DRG 177 ==
LOC: JER 10:05 → JERBED 11:31 → OBSVTOIN 12:42 → JICU 07-21 14:33 → J4S 07-23 19:53
PROVIDERS: ADMIT Internal Medicine; ATTEND Internal Medicine
PROC: XW033E5 Introduction of Remdesivir Anti-infective into Peripheral Vein, Percutaneous Approach, New Technology Group 5 (ICD-10-PCS; principal; 2024-07-21)
DX: U07.1 COVID-19 (principal); I40.0 Infective myocarditis; J96.01 Acute respiratory failure with hypoxia; I50.33 Acute on chronic diastolic (congestive) heart failure; J18.9 Pneumonia, unspecified organism; I24.89 Other forms of acute ischemic heart disease; I10 Essential (primary) hypertension; E03.9 Hypothyroidism, unspecified; E78.5 Hyperlipidemia, unspecified; I11.0 Hypertensive heart disease with heart failure; D50.9 Iron deficiency anemia, unspecified; K21.9 Gastro-esophageal reflux disease without esophagitis; K44.9 Diaphragmatic hernia without obstruction or gangrene; D18.09 Hemangioma of other sites; I48.0 Paroxysmal atrial fibrillation; Z85.850 Personal history of malignant neoplasm of thyroid
CPT/HCPCS: 0241U-QW; 36415; 71045-TC-FY; 80053; 80061; 81003; 82803; 82962; 83036; 83605; 83735; 83880; 84100; 84439; 84443; 84484; 85025; 85027; 85610; 85730; 86140; 86803; 86850; 86900; 86901; 87086; 87389; 87899; 93005; 93010; 93306-TC; 97116-GP; 97161-GP; 99285-25; G0378; J0248

== ENCOUNTER 2024-08-13 12:06 | Day surgery (SDC) | payer OTHER ==
[2024-08-13] MEDS: FERRIC CARBOXYMALTOSE 750 MG in SODIUM CHLORIDE 250 ML IVPB ONE (12:31)
[2024-08-13 13:11] VITALS: BP 120/80; PULSE 78; RESP 16; TEMP 98.2
== END 2024-08-13 13:13 | disposition home or self-care (01) ==
LOC: FINFUSION 12:06 → FM/S 12:12 → FINFUSION 13:13
PROVIDERS: ATTEND Family Medicine
PROC: 3E033GC Introduction of Other Therapeutic Substance into Peripheral Vein, Percutaneous Approach (ICD-10-PCS; principal; 2024-08-13)
DX: D50.9 Iron deficiency anemia, unspecified (principal)
CPT/HCPCS: 96365; J1439

== ENCOUNTER 2024-08-20 12:03 | Day surgery (SDC) | payer OTHER ==
[2024-08-20] MEDS: FERRIC CARBOXYMALTOSE 750 MG in SODIUM CHLORIDE 250 ML IVPB ONE (12:45)
[2024-08-20 13:35] VITALS: BP 118/68; PULSE 88; RESP 17; TEMP 97.5
== END 2024-08-20 13:25 | disposition home or self-care (01) ==
LOC: FINFUSION 12:03 → FM/S 12:05 → FINFUSION 13:25
PROVIDERS: ATTEND Family Medicine
PROC: 3E033GC Introduction of Other Therapeutic Substance into Peripheral Vein, Percutaneous Approach (ICD-10-PCS; principal; 2024-08-20)
DX: D50.9 Iron deficiency anemia, unspecified (principal)
CPT/HCPCS: 96365; J1439